=== PATIENT | female | born 1950 | race Caucasian/White ===

== ENCOUNTER 2018-09-09 22:15 | Emergency (ER) | payer OTHER, MEDICARE ==
--- OUTSIDE RECORDS SUMMARY | 2018-09-09 22:18 | XMS REPORT | Clinical Summary ---
:1950 Author Organization [facility] Address [address] [place] [address] Care Team Providers Name Role Phone Caio Menjivar MD Primary Care Provider Allergies No Known Allergies Medications Medication Sig Dispensed Refills Start End Date Status Date losartan (COZAAR) 100 MG Take 100 mg 0 Active tablet by mouth daily. aspirin (ECOTRIN) 81 MG Take 81 mg by 0 Active enteric coated tablet mouth daily. traZODone (DESYREL) 100 Take 100 mg 0 Active MG tablet by mouth nightly. HUMIRA PEN 40 mg/0.8 mL One shot every 2 weeks 0.8 mL 4 Active pen injector kit Dispense 6 prefilled pens 8 19 injection pen kit hydroCHLOROthiazide Take 12.5 mg 0 Active (HYDRODIURIL) 12.5 MG by mouth tablet daily. amLODIPine (NORVASC) 5 Take 5 mg by 0 Active mg tablet mouth daily. clopidogrel (PLAVIX) 75 Take 75 mg by 0 Active mg tablet mouth daily. atorvastatin (LIPITOR) Take 20 mg by 0 Active 20 MG tablet mouth daily. Default OP ins DULoxetine (CYMBALTA) 20 TAKE TWO (2) 6 Active MG capsule CAPSULE(S) BY 8 MOUTH ONCE A DAY. multivitamin capsule Take 1 0 Active capsule by mouth daily. pantoprazole (PROTONIX) TAKE ONE (1) 2 11/25/19 Discontinued 40 MG EC tablet TABLET(S) BY 7 18 MOUTH ONCE A DAY DIRECTED FOR 30 DAYS. TRINTELLIX 10 mg tablet TAKE ONE (1) 2 11/25/19 Discontinued TABLET(S) BY 7 18 MOUTH ONCE A DAY. adalimumab (HUMIRA PEN) One shot every 2 weeks 0.8 mL 4 Discontinued 40 mg/0.8 mL pen Dispense 6 prefilled pens 7 18 injector kit HUMIRA PEN 40 mg/0.8 mL One shot every 2 weeks 0.8 mL 4 Discontinued pen injector kit Dispense 6 prefilled pens 8 18 injection pen kit HUMIRA PEN 40 mg/0.8 mL One shot every 2 weeks 0.8 mL 4 Discontinued pen injector kit Dispense 6 prefilled pens 8 18 injection pen kit Active Problems Problem Noted Date Colon polyp Hemorrhoids GERD (gastroesophageal reflux disease) Hiatal hernia Schatzki's ring Lactose intolerance Irritable bowel syndrome Crohn's disease Encounters Date Type Specialty Care Team Description 06/23/2018 Hospital Encounter Radiology [facility] Delvalle Inflammatory arthritis MD Lisseth 06/23/2018 Hospital Encounter Radiology [facility] Pain of both hip joints MD Lisseth 06/23/2018 Hospital Encounter Radiology [facility] Del[facility] Sacroiliac joint MD Lisseth dysfunction of both sides 06/23/2018 Office Visit Rheumatology [facility] Delvalle Crohn's disease of colon without complication (Primary Dx); MD Lisseth Encounter for long-term (current) use of high-risk medication; Sacroiliac joint dysfunction of both sides; Pain of both hip joints; Dry mouth; Inflammatory arthritis; Chronic tension-type headache, not intractable; History of stroke 06/03/2018 Documentation GastroenterSharon Parikh MA 05/21/2018 Documentation GastroenterSharon Parikh MA 05/20/2018 Telephone Gastroenterology Vicky Benz RN 05/11/2018 Documentation Horacio Alejandra MD 05/07/2018 Documentation Sharon Patel MA 05/07/2018 Telephone GastroenterVicky Romero RN 05/05/2018 Documentation GastroenterHoracio Perez MD 04/23/2018 Office Visit Gastroenterology [place], Hemorrhoids, unspecified hemorrhoid type (Primary Dx); Horacio Bradley Crohn's disease of small intestine without complication; Irritable bowel syndrome with diarrhea; Gastroesophageal reflux disease, esophagitis presence not specified; Hiatal hernia; Polyp of colon, unspecified part of colon, unspecified type; Lactose intolerance; Schatzki's ring 04/20/2018 Telephone Gastroenterology Vicky Benz, VANDANA 12/16/2017 Documentation Gastroenterology Sharon Orr MA 11/25/2017 Office Visit Gastroenterology [place], Hemorrhoids, unspecified hemorrhoid type (Primary Dx); Horacio Bradley Hiatal hernia; Chronic diarrhea; Polyp of colon, unspecified part of colon, unspecified type; Crohn's disease of small intestine without complication; Irritable bowel syndrome with diarrhea; Lactose intolerance; Schatzki's ring; Duodenitis; Gastroesophageal reflux disease, esophagitis presence not specified 11/18/2017 Orders Only Gastroenterology Sharon Orr MA 11/18/2017 Orders Only Gastroenterology Horacio Grady MD 11/18/2017 Telephone Gastroenterology Dariana Covarrubias LVN 11/06/2017 Telephone Gastroenterology Vicky Benz, VANDANA after 09/08/2017 Family History Medical History Relation Name Comments Alcohol abuse Brother Hodgkin's lymphoma Brother Cirrhosis Father Coronary artery disease Father Hepatitis Father "C" after blood transfusion Coronary artery disease Mother Dementia Mother Drug abuse Sister Now clean No Known Problems Sister Relation Name Status Comments Brother Alive Brother Alive Father Mother Sister Alive Sister Alive Social History Tobacco Use Types Packs/Day Years Used Date Never Smoker Smokeless Tobacco: Never Used Alcohol Use Drinks/Week oz/Week Comments No Sex Assigned at Date Recorded Not on file Job Start Date Occupation Industry Not on file Not on file Not on file Travel History Travel Start Travel End No recent travel history available. Last Filed Vital Signs Vital Sign Reading Time Taken Blood Pressure 136/63 06/23/2018 9:58 AM CDT Pulse 61 06/23/2018 9:58 AM CDT Temperature 36.4 C (97.6 F) 06/23/2018 9:58 AM CDT Respiratory Rate 18 06/23/2018 9:58 AM CDT Oxygen Saturation 100% 06/23/2018 9:58 AM CDT Inhaled Oxygen Concentration - - Weight 50.2 kg (110 lb 11.2 oz) 06/23/2018 9:58 AM CDT Height 157 cm (5' 1.81") 06/23/2018 9:58 AM CDT Body Mass Index 20.37 06/23/2018 9:58 AM CDT Plan of Treatment Health Maintenance Due Date Last Done Comments BREAST CANCER SCREENING 1999 COLON CANCER SCREENING 1999 SHINGRIX VACCINE (1 of 2) 1999 ZOSTER VACCINE 2009 PNEUMOCOCCAL POLYSACCHARIDE VACCINE AGE 65 AND OVER 2014 PNEUMOCOCCAL-13 2014 INFLUENZA VACCINE 05/27/2018 Procedures Procedure Name Priority Date/Time Associated Diagnosis Comments XR HANDS 3 VW Routine 06/23/2018 11:25 Inflammatory Results for this BILATERAL AM CDT arthritis procedure are in the results section. XR HIPS BILATERAL AP Routine 06/23/2018 11:25 Pain of both hip Results for this LATERAL W AP PELVIS AM CDT joints procedure are in the results section. XR SACROILIAC JOINTS Routine 06/23/2018 11:24 Sacroiliac joint Results for this 3+ VW AM CDT dysfunction of both procedure are in sides the results section. URINALYSIS, AUTOMATED Routine 06/23/2018 10:06 Crohn's disease of Results for this WITH MICROSCOPY AM CDT colon without procedure are in complication the results section. SSA/SSB ANTIBODY Routine 06/23/2018 10:06 Dry mouth Results for this AM CDT procedure are in the results section. CYCLIC CITRULLINATED Routine 06/23/2018 10:06 Inflammatory Results for this PEPTIDE AB, IGG AM CDT arthritis procedure are in the results section. RHEUMATOID FACTOR Routine 06/23/2018 10:06 Inflammatory Results for this AM CDT arthritis procedure are in the results section. HLA-B27 ANTIGEN Routine 06/23/2018 10:06 Sacroiliac joint Results for this AM CDT dysfunction of both procedure are in sides the results section. C-REACTIVE PROTEIN Routine 06/23/2018 10:06 Crohn's disease of Results for this AM CDT colon without procedure are in complication the results section. BETA-2 GLYCOPROTEIN 1 Routine 06/23/2018 10:06 Crohn's disease of Results for this ANTIBODIES (IGG, IGA, AM CDT colon without procedure are in IGM) complication the results section. CARDIOLIPIN ANTIBODIES Routine 06/23/2018 10:06 Crohn's disease of Results for this AM CDT colon without procedure are in complication the results section. C4 COMPLEMENT Routine 06/23/2018 10:06 Crohn's disease of Results for this COMPONENT AM CDT colon without procedure are in complication the results section. C3 COMPLEMENT Routine 06/23/2018 10:06 Crohn's disease of Results for this COMPONENT AM CDT colon without procedure are in complication the results section. ALEX SCREEN W IFA W Routine 06/23/2018 10:06 Crohn's disease of Results for this REFLEX TO TITER AM CDT colon without procedure are in complication the results section. COPY(IES) SENT TO: Routine 04/27/2018 9:24 Results for this AM CDT procedure are in the results section. CALPROTECTIN, STOOL Routine 04/27/2018 9:24 Hemorrhoids, Results for this AM CDT unspecified procedure are in hemorrhoid type the results Crohn's disease of section. small intestine without complication Irritable bowel syndrome with diarrhea Gastroesophageal reflux disease, esophagitis presence not specified Hiatal hernia Polyp of colon, unspecified part of colon, unspecified type Lactose intolerance Schatzki's ring C-REACTIVE PROTEIN Routine 04/23/2018 2:29 Hemorrhoids, Results for this PM CDT unspecified procedure are in hemorrhoid type the results Crohn's disease of section. small intestine without complication Irritable bowel syndrome with diarrhea Gastroesophageal reflux disease, esophagitis presence not specified Hiatal hernia Polyp of colon, unspecified part of colon, unspecified type Lactose intolerance Schatzki's ring COMPREHENSIVE Routine 04/23/2018 2:29 Hemorrhoids, Results for this METABOLIC PANEL PM CDT unspecified procedure are in hemorrhoid type the results Crohn's disease of section. small intestine without complication Irritable bowel syndrome with diarrhea Gastroesophageal reflux disease, esophagitis presence not specified Hiatal hernia Polyp of colon, unspecified part of colon, unspecified type Lactose intolerance Schatzki's ring CBC HEMOGRAM Routine 04/23/2018 2:29 Hemorrhoids, Results for this PM CDT unspecified procedure are in hemorrhoid type the results Crohn's disease of section. small intestine without complication Irritable bowel syndrome with diarrhea Gastroesophageal reflux disease, esophagitis presence not specified Hiatal hernia Polyp of colon, unspecified part of colon, unspecified type Lactose intolerance Schatzki's ring CALPROTECTIN, STOOL Routine 11/28/2017 10:09 Hemorrhoids, Results for this AM [employer]IST[employer] unspecified procedure are in hemorrhoid type the results Hiatal hernia section. 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 Chronic diarrhea Polyp of colon, unspecified part of colon, unspecified type Crohn's disease of small intestine without complication Irritable bowel syndrome with diarrhea Lactose intolerance Schatzki's ring Duodenitis Gastroesophageal reflux disease, esophagitis presence not specified after 09/08/2017 Results XR Hands 3 Vw Bilateral (06/23/2018 11:25 AM CDT) Narrative Performed At EXAMINATION:XR HANDS 3 VW BILATERAL HM [facility] CLINICAL HISTORY:M19.90 Unspecified osteoarthritisunspecified site, inflammatory arthropathy COMPARISON:None. FINDINGS: There is no acute fracture or dislocation. There is healed fracture deformity and well-corticated ossific fragment involving the right ulnar styloid. There are mild degenerative changes of the basal joint of the right thumb. Bones are mildly demineralized. Joint spaces are preserved. No erosive change or periostitis noted. There are no radiographic changes of inflammatory arthropathy. IMPRESSION: No evidence of inflammatory arthropathy. [facility]-[id number] Procedure Note Hm Interface, Radiology Results [facility] - 06/23/2018 5:08 PM CDT EXAMINATION: XR HANDS 3 VW BILATERAL CLINICAL HISTORY: M19.90 Unspecified osteoarthritis unspecified site, inflammatory arthropathy COMPARISON: None. FINDINGS: There is no acute fracture or dislocation. There is healed fracture deformity and well-corticated ossific fragment involving the right ulnar styloid. There are mild degenerative changes of the basal joint of the right thumb. Bones are mildly demineralized. Joint spaces are preserved. No erosive change or periostitis noted. There are no radiographic changes of inflammatory arthropathy. IMPRESSION: No evidence of inflammatory arthropathy. [facility]-[id number] Performing Organization Address [facility] Servicescode Phone Number [facility] [address] [place] [address] XR Hips Bilateral Ap Lateral W Ap Pelvis (06/23/2018 11:25 AM CDT) Narrative Performed At Title:Left and right hips, 5 views [facility] Reason for exam:M25.551 Pain in right hip, M25.552 Pain in left hip, Right hip limitation and pain Comparison studies: None. FINDINGS: The joint distances are normal. There are no fractures and no subluxations. Sacroiliac joints are unremarkable. There are no erosions. There is soft tissue calcification and enthesiopathy in the left anterior superior iliac spine muscle insertion site. 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 [facility][id number] Procedure Note Interface, Radiology Results Incoming - 06/23/2018 6:23 PM CDT Title:Left and right hips, 5 views Reason for exam:M25.551 Pain in right hip, M25.552 Pain in left hip, Right hip limitation and pain Comparison studies: None. FINDINGS: The joint distances are normal. There are no fractures and no subluxations. Sacroiliac joints are unremarkable. There are no erosions. There is soft tissue calcification and enthesiopathy in the left anterior superior iliac spine muscle insertion site. 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 [facility][id number] Performing Organization Address [facility]/Zipcode Phone Number [facility] [address] [place] [address] XR Sacroiliac Joints 3+ Vw (06/23/2018 11:24 AM CDT) Narrative Performed At EXAMINATION: XR SACROILIAC JOINTS 3VW [facility] CLINICAL HISTORY: M53.3 Sacrococcygeal disordersnot elsewhere classified, sacroiliac dysfunciton (R L) COMPARISON:None Findings: There are mild degenerative changes in the sacroiliac joint regions. There are a few nonspecific calcifications in the pelvis. IMPRESSION: Mild degenerative changes of the sacroiliac joints which can be further evaluated with other imaging if indicated. [facility]-[id number] Procedure Note Hm Interface, Radiology Results Incoming - 06/23/2018 11:29 AM CDT EXAMINATION: XR SACROILIAC JOINTS 3 VW CLINICAL HISTORY: M53.3 Sacrococcygeal disorders not elsewhere classified, sacroiliac dysfunciton (R L) COMPARISON: None Findings: There are mild degenerative changes in the sacroiliac joint regions. There are a few nonspecific calcifications in the pelvis. IMPRESSION: Mild degenerative changes of the sacroiliac joints which can be further evaluated with other imaging if indicated. [facility]-[id number] Performing Organization Address City/State/Zipcode Phone Number CANDIS [address] [place] [address] Beta-2 glycoprotein 1 antibodies (IgG, IgA, IgM) (06/23/2018 10:06 AM CDT) Beta-2 glycoprotein 1 <9 < OR=20 [facility] antibody, IgG [facility] [facility] Beta-2 glycoprotein 1 <9 < OR=20 [facility] antibody, IgM [facility] [facility] Beta-2 glycoprotein 1 <9 < OR=20 [facility] antibody, IgA Comment: [facility]/[employer] Clinical Significance: [facility] The Antiphospholipid Antibody Syndrome (APS) is a clinical pathologic correlation that includes a clinical event (e.g. thrombosis, loss, thrombocytopenia) and persistent positive Antiphospholipid Antibodies (IgM or IgG LAURENCE >40 MPL/GPL, IgM or IgG anti-B2GP1 antibodies, or a Lupus Anticoagulant). The IgA isotype has been implicated in smaller studies, but have not yet been incorporated into the APS criteria. International consensus guidelines suggest waiting at least 12 weeks before retesting to confirm antibody persistence. Reference J Thromb Haemost 2006: 4; 295. For more information on this test, go to: http://education.[employer]/faq/QXK322 Specimen Blood Narrative Performed At FASTING:NO [facility] FASTING: NO Resulting Agency Comment Performing Organization Information: Site ID: [id number] Name: [email or web address] [facility], Address: [address] [place] [phone] Director: Shiloh Issa MD,PhD,ALEXA Performing Organization Address City/[facility]/Zipcode Phone Number QR Wild/CHANEL [address] [place] [address] [phone] [facility] ALEX SCREEN W IFA W REFLEX TO TITER (06/23/2018 10:06 AM CDT) ALEX screen NEGATIVE NEGATIVE Alo7PAUL II Comment: ALEX IFA is a first line screen for detecting the presence of up to approximately 150 autoantibodies in various autoimmune diseases. A negative ALEX IFA result suggests ALEX-associated autoimmune diseases are not present at this time. Visit Physician FAQs for interpretation of all antibodies in the [place], prevalence, and association with diseases at http://LoopFuse.Cyzone/ faq/PXP993 Specimen Blood Narrative Performed At FASTING:NO [facility] FASTING: NO Resulting Agency Comment Performing Organization Information: Site ID: [id number] Name: [facility] Address: [address] [place] [phone] Director: Dr. Dale Wood Performing Organization Address [facility] Phone Number [employer] [address] [address] SSA/SSB antibody (06/23/2018 10:06 AM CDT) Sjogren's SS-A antibody <1.0 NEG <1.0 NEG AI Alo7PAUL II Sjogren's SS-B antibody <1.0 NEG <1.0 NEG AI SarsysVING II Specimen Blood Narrative Performed At FASTING:NO [facility] FASTING: NO Resulting Agency Comment Performing Organization Information: Site ID: IG Name: [facility] Address: [address] [place] [phone] Director: Dr. Dale Wood Performing Organization Address [facility] Servicescode Phone Number [employer] [address] [address] HLA-B27 antigen (06/23/2018 10:06 AM CDT) HLA B27 NEGATIVE NEGATIVE SarsysVING II Specimen Blood Narrative Performed At FASTING:NO [facility] FASTING: NO Resulting Agency Comment Performing Organization Information: Site ID: IG Name: [facility] Address: [address] [place] [phone] Director: Dr. Dale Wood Performing Organization Address [facility] Servicescowy Phone Number BULMARO [employer]G PharmaceuticalPAUL II [address] [place] [address] Cyclic citrullinated peptide antibody, IgG (06/23/2018 10:06 AM CDT) Cyclic citrullin peptide <16 UNITS Alo7PAUL Ab Comment: II Reference Range Negative:<20 Weak Positive: 20-39 Moderate Positive: 40-59 Strong Positive: >59 Specimen Blood Narrative Performed At FASTING:NO [facility] FASTING: NO Resulting Agency Comment Performing Organization Information: Site ID: IG Name: [facility] Address: [address] [place] [phone] Director: Dr. Dale Wood Performing Organization Address [facility] Servicesc[facility]y Phone Number [email or web address] [address] [address] Cardiolipin antibodies (06/23/2018 10:06 AM CDT) Cardiolipin IgA <11 APL [facility] Comment: II Value Interpretation ----- < or=11 Negative 12 - 20 Indeterminate 21 - 80 Low to Medium Positive >80 High Positive Cardiolipin IgG <14 GPL [facility] Comment: II Value Interpretation ----- < or=14 Negative 15 - 20 Indeterminate 21 - 80 Low to Medium Positive >80 High Positive Cardiolipin IgM 38 (H) MPL [facility] Comment: II Value Interpretation ----- < or=12 Negative 13 - 20 Indeterminate 21 - 80 Low to Medium Positive >80 High Positive Comment [facility] Comment: II The antiphospholipid antibody syndrome (APS) is a clinical-pathologic correlation that includes a clinical event(e.g. thrombosis, loss, thrombocytopenia) and persistent positive antiphospholipid antibodies (IgM or IgG LAURENCE >40 MPL/GPL, IgM or IgG anti-b2GPI antibodies or a lupus anticoagulant). The IgA isotype has been implicated in smaller studies, but has not yet been incorporated into the APS criteria. International consensus guidelines suggest waiting at least 12 weeks before retesting to confirm antibody persistence. Reference J Thromb Haemost 2006: 4;295 Specimen Blood Narrative Performed At FASTING:NO [facility] FASTING: NO Resulting Agency Comment Performing Organization Information: Site ID: [id number] Name: [facility] Address: [address] [place] [phone] Director: Dr. Dale Wood Performing Organization Address City/[facility]/Zipcode Phone Number QR [employer] [address] Urinalysis, automated with microscopy (06/23/2018 10:06 AM CDT) Color, UA YELLOW YELLOW [employer] [facility] Appearance CLEAR CLEAR [facility] Specific gravity, urine 1.025 1.001 - 1.035 [facility] [place] pH, urine 7.5 5.0 - 8.0 [facility] Glucose, urine NEGATIVE NEGATIVE [facility] [place] Bilirubin, UA NEGATIVE NEGATIVE [facility] [place] Ketones, UA NEGATIVE NEGATIVE [facility] [employer] [place] Occult blood, urine NEGATIVE NEGATIVE [facility] [employer] [place] Protein, UA NEGATIVE NEGATIVE [facility] [place] Nitrite, UA NEGATIVE NEGATIVE [facility] [place] Leukocyte esterase, UA NEGATIVE NEGATIVE [facility] [place] WBC, UA 0-5 < OR=5 /HPF [facility] [place] RBC, UA 0-2 < OR=2 /HPF [facility] [place] Squamous epithelial 0-5 < OR=5 /HPF [facility] [place] cells, UA Bacteria, UA NONE SEEN NONE SEEN /HPF [facility] [place] Hyaline casts, UA NONE SEEN NONE SEEN /LPF [facility] [place] Comment FEW MUCOUS THREADS [employer] [place] Specimen Urine Narrative Performed At FASTING:NO [facility] FASTING: NO Resulting Agency Comment Performing Organization Information: Site ID: [id number] Name: [facility] Address: [address] [place] [address] Director: Coby Das Performing Organization Address [facility]/Zipcode Phone Number QR Wild [place] [phone] [place] [address] Rheumatoid factor (06/23/2018 10:06 AM CDT) Rheumatoid factor <14 <14 IU/mL [employer] [facility] Specimen Blood Narrative Performed At FASTING:NO [facility] FASTING: NO Resulting Agency Comment Performing Organization Information: Site ID: [id number] Name: [facility] Address: [address] [place] [phone] Director: Coby Das Performing Organization Address [facility] Phone Number [employer] [place] [address] [place] [address] [phone] C3 complement component (06/23/2018 10:06 AM CDT) C3 complement 115 83 - 193 mg/dL [employer] [place] Specimen Blood Narrative Performed At FASTING:NO [facility] FASTING: NO Resulting Agency Comment Performing Organization Information: Site ID: [id number] Name: [facility] Address: [address] [place] [phone] Director: Coby Das Performing Organization Address [facility] Phone Number QR Wild [address] [address] C4 complement component (06/23/2018 10:06 AM CDT) C4 complement 18 15 - 57 mg/dL [employer] [facility] [place] Specimen Blood Narrative Performed At FASTING:NO [facility] FASTING: NO Resulting Agency Comment Performing Organization Information: Site ID: [facility] Name: [facility] Address: [address] [place] [phone] Director: Coby Das Performing Organization Address [facility] Phone Number [employer]Run [facility] [address] [place] [phone] C-reactive protein (06/23/2018 10:06 AM CDT)Only the most recent of3 resultswithin the time period is included. CRP 1.5 <8.0 mg/L [employer] [place] Specimen Blood Narrative Performed At FASTING:NO [facility] FASTING: NO Resulting Agency Comment Performing Organization Information: Site ID: [id number] Name: [facility] Address: [address] [place] [id number] Director: Coby Das Performing Organization Address [facility] Phone Number QR Wild [address] [address] COPY(IES) SENT TO: (04/27/2018 9:24 AM CDT) Copies/mL [facility] Comment: KVNG MENJIVAR MD [address] [place] [address] [place] [address] Narrative Performed At [facility] 04/23/2018 FROM [id number] MyClasses Performing Organization Address City/State/[facility] Phone Number [facility] Calprotectin, stool (04/27/2018 9:24 AM CDT)Only the most recent of2 resultswithin the time period is included. Calprotectin, stool >2000.0 (H) < VD=389.9 mcg/g [employer] [facility] Specimen Stool Narrative Performed At [facility] 04/23/2018 FROM [id number] [facility] Resulting Agency Comment Performing Organization Information: Site ID: [id number] Name: [email or web address] [facility], Address: [address] [place] [phone] Director: Shiloh Issa MD,PhD,ALEXA Performing Organization Address City/[facility] Phone Number [facility] [employer] [address] [place] [phone] [facility] CBC hemogram (04/23/2018 2:29 PM CDT)Only the most recent of2 resultswithin the time period is included. WBC 12.6 (H) 3.8 - 10.8 Thousand/uL [employer] RBC 4.34 3.80 - 5.10 Million/uL [facility] [place] HGB 13.0 11.7 - 15.5 g/dL [facility] [place] HCT 38.7 35.0 - 45.0 % [facility] MCV 89.2 80.0 - 100.0 fL [facility] MCH 30.0 27.0 - 33.0 pg [facility] [place] MCHC 33.6 32.0 - 36.0 g/dL [facility] [place] RDW 12.5 11.0 - 15.0 % [facility] [place] Platelet count 355 140 - 400 Thousand/uL [facility] [place] MPV 10.7 7.5 - 12.5 fL [facility] [place] Specimen Blood Narrative Performed At FASTING:NO [facility] COLLECTION KIT GIVEN TO PATIENT. PATIENT ADVISED TO RETURN. FASTING: NO Resulting Agency Comment Performing Organization Information: Site ID: [id number] Name: [facility] Address: [address] [place] [id number] Director: Coby Das Performing Organization Address [facility] Phone Number [facility] [employer] [place] [address] [place] [phone] Comprehensive metabolic panel (04/23/2018 2:29 PM CDT)Only the most recent of2 resultswithin the time period is included. Glucose 79 65 - 139 mg/dL [employer] [employer] Comment: [place] Non-fasting reference interval BUN, whole blood 14 7 - 25 mg/dL [facility] [place] Creatinine 0.83 0.50 - 0.99 [employer] [employer] Comment: mg/dL [place] For patients >49 years of age, the reference limit for Creatinine is approximately 13% higher for people identified as -Liberian. EGFR Non-Afr. Liberian 72 > OR=60 [facility] mL/min/1.73m2 [place] EGFR 84 > OR=60 [facility] mL/min/1.73m2 [place] BUN/creatinine ratio NOT APPLICABLE 6 - 22 (calc) [facility] [place] Sodium 140 135 - 146 mmol/L [facility] [place] Potassium 4.0 3.5 - 5.3 mmol/L [facility] [place] Chloride 103 98 - 110 mmol/L [facility] [place] CO2 31 20 - 31 mmol/L [facility] [place] Calcium 9.8 8.6 - 10.4 mg/dL [facility] [place] Protein 6.4 6.1 - 8.1 g/dL [facility] [place] Albumin, S 4.0 3.6 - 5.1 g/dL [facility] [place] Globulin, total 2.4 1.9 - 3.7 g/dL [facility] (calc) [place] Albumin/globulin ratio 1.7 1.0 - 2.5 (calc) [facility] [place] Total bilirubin 0.4 0.2 - 1.2 mg/dL [facility] [place] Alkaline phosphatase 99 33 - 130 U/L [facility] [place] AST 18 10 - 35 U/L [facility] [place] ALT 13 6 - 29 U/L [facility] [place] Specimen Blood Narrative Performed At FASTING:NO [facility] COLLECTION KIT GIVEN TO PATIENT. PATIENT ADVISED TO RETURN. FASTING: NO Resulting Agency Comment Performing Organization Information: Site ID: [id number] Name: [facility] Address: [address] [place] [phone] Director: Coby Das Performing Organization Address City/State/Zipcode Phone Number [facility] [place] [address] [place] [address] after 09/08/2017 Insurance Payer Benefit Plan / Group Subscriber ID Type Phone Address MEDICARE MEDICARE PART A AND B xxxxxxxxxx Medicare [place], [place] AARP AARP SUPPLEMENT xxxxxxxxxxx Commercial ([place]) [place] [address] Advance Directives Patient has advance care planning documents on file. For more information, please contact:Baldemar Ochoa[address] [place] [address]
[2018-09-10] MEDS ORDERED: NA CHLORIDE 0.9% 1,000 ML ONE (00:26)
[2018-09-10 01:00] LABS: MCV 91.3 fL (80-100)
[2018-09-10 01:01] LABS: Protime INR 0.96
[2018-09-10 01:02] LABS: Urine Culture Reflex Order NOT NEEDED; Urine RBC <5 /HPF (NONE SEEN)
[2018-09-10 01:03] LABS: Urine Bacteria <20 /HPF (<20)
[2018-09-10 01:04] LABS: Urine Blood NEGATIVE (NEG); Urine Glucose NEGATIVE (NEG); Urine Protein NEGATIVE (NEG); Urine Specific Gravity 1.015 (1.005-1.030)
[2018-09-10 01:08] LABS: Absolute Lymphocytes (CBC) 3.1 K/uL (0.7-4.9); Absolute Neutrophil 7.4 K/uL (1.8-8.0); Basophils % 0.6 % (0-1.3); Eosinophils % 1.8 % (0-4.4); Hematocrit 38.9 % (36.0-45.0); Lymphocytes % 26.4 % (15.3-44.8); MCH 30.5 pg (27.0-35.0); MPV 9.4 fL (7.6-11.3); Monocytes % 8.4 % (3.3-12.3); RBC Red Blood Cell Count 4.26 M/uL (3.86-4.86)
[2018-09-10 01:13] LABS: ALT/SGPT 30 U/L (12-78); AST/SGOT 28 U/L (15-37); Albumin 3.8 g/dL (3.4-5.0); Alkaline Phosphatase 106 U/L (45-117); BUN Blood Urea Nitrogen 14 mg/dL (7-18); Bicarbonate 30 mmol/L (21-32); Bilirubin Direct < 0.1 mg/dL (0-0.2); Bilirubin Total 0.3 mg/dL (0.2-1.0); Glucose Level 99 mg/dL (74-106); Magnesium 2.1 mg/dL (1.8-2.4); NT PRO-BNP 20 pg/mL (<125); Potassium 3.5 mmol/L (3.5-5.1); Protein, Total 7.3 g/dL (6.4-8.2); Sodium Level 141 mmol/L (136-145); Troponin (Emerg Dept Use Only) < 0.02 ng/mL (0.0-0.045)
--- NOTE | 2018-09-10 02:01 | EDPHYS ---
Physician Documentation [facility] Name: Cristine Jarrell Age: 67 yrs Sex: Female : 1950 Arrival Date: 09/09/2018 Time: 22:16 Bed 27 Private MD: ED Physician Naeem Headley HPI: 09/10 01:58 This 67 yrs old Female presents to ER via Ambulatory with complaints of gs Dizziness, fatigue. 01:58 The patient presents with vertigo. Onset: The symptoms/episode began/occurred acutely. gs 01:58 Onset: The symptoms/episode began/occurred yesterday, at 08:00. Modifying factors: the gs symptoms are aggravated by movement of head, standing up, changing position. Associated signs and symptoms: Pertinent positives: fatigue. Severity of symptoms: At their worst the symptoms were severe in the emergency department the symptoms have resolved. The patient has experienced similar episodes in the past, a few times. The patient has not recently seen a physician. Historical: - Allergies: 09/09 22:31 No Known Allergies; ss - PMHx: 22:31 Crohn's; TIA; Hypertension; High Cholesterol; ss - Immunization history:: Adult Immunizations up to date. - Social history:: Smoking status: Patient/guardian denies using tobacco. - Ebola Screening: : Patient denies exposure to infectious person Patient denies travel to an Ebola-affected area in the 21 days before illness onset. ROS: 09/10 01:58 All other systems are negative. gs Exam: 01:58 Head/Face: Normocephalic, atraumatic. Eyes: Pupils equal round and reactive to light, gs extra-ocular motions intact. Lids and lashes normal. Conjunctiva and sclera are non-icteric and not injected. Cornea within normal limits. Periorbital areas with no swelling, redness, or edema. ENT: Nares patent. No nasal discharge, no septal abnormalities noted. Tympanic membranes are normal and external auditory canals are clear. Oropharynx with no redness, swelling, or masses, exudates, or evidence of obstruction, uvula midline. Mucous membranes moist. Neck: Trachea midline, no thyromegaly or masses palpated, and no cervical lymphadenopathy. Supple, full range of motion without nuchal rigidity, or vertebral point tenderness. No Meningismus. Chest/axilla: Normal chest wall appearance and motion. Nontender with no deformity. No lesions are appreciated. Cardiovascular: Regular rate and rhythm with a normal S1 and S2. No gallops, murmurs, or rubs. Normal PMI, no JVD. No pulse deficits. Respiratory: Lungs have equal breath sounds bilaterally, clear to auscultation and percussion. No rales, rhonchi or wheezes noted. No increased work of breathing, no retractions or nasal flaring. Abdomen/GI: Soft, non-tender, with normal bowel sounds. No distension or tympany. No guarding or rebound. No evidence of tenderness throughout. Back: No spinal tenderness. No costovertebral tenderness. Full range of motion. Skin: Warm, dry with normal turgor. Normal color with no rashes, no lesions, and no evidence of cellulitis. MS/ Extremity: Pulses equal, no cyanosis. Neurovascular intact. Full, normal range of motion. Neuro: Awake and alert, GCS 15, oriented to person, place, time, and situation. Cranial nerves II-XII grossly intact. Motor strength 5/5 in all extremities. Sensory grossly intact. Cerebellar exam normal. Normal gait. 01:58 Constitutional: The patient appears alert, awake. Vital Signs: 09/09 22:31 BP 170 / 81; Pulse 85; Resp 17; Temp 98.0(O); Pulse Ox 100% on R/A; Weight 51.71 kg; Height 5 ft. 2 in. (157.48 cm); Pain 0/10; 23:08 BP 138 / 69; Pulse 75; Resp 18; Pulse Ox 100% on R/A; Pain 0/10; mg2 09/10 01:37 BP 146 / 72; Pulse 72; Resp 18; Pulse Ox 100% on R/A; Pain 0/10; mg2 02:14 BP 135 / 78; Pulse 75; Resp 18; Pulse Ox 100% on R/A; Pain 0/10; mg2 09/09 22:31 Body Mass Index 20.85 (51.71 kg, 157.48 cm) NIH Stroke Scale Scores: 01:58 NIHSS Score: 0 gs MDM: 00:15 Patient medically screened. 01:58 Differential diagnosis: idiopathic dizziness, TIA, vertigo. Data reviewed: vital signs, nurses notes. Counseling: I had a detailed discussion with the patient and/or guardian regarding: the historical points, exam findings, and any diagnostic results supporting the discharge/admit diagnosis, the need for outpatient follow up, wants to go home. Response to treatment: the patient's symptoms have resolved after treatment. 09/10 00:15 Order name: Basic Metabolic Panel; Complete Time: 02:01 09/10 00:15 Order name: CBC with Diff; Complete Time: 02: 09/10 00:15 Order name: LFT's; Complete Time: 02: 09/10 00:15 Order name: Magnesium; Complete Time: 02: 09/10 00:15 Order name: NT PRO-BNP; Complete Time: 02: 09/10 00:15 Order name: PT-INR; Complete Time: 02: 09/10 00:15 Order name: Troponin (emerg Dept Use Only); Complete Time: 02: 09/10 00:15 Order name: XRAY Chest (1 view) 09/10 00:15 Order name: EKG; Complete Time: 00:16 09/10 00:15 Order name: Urine Microscopic Only; Complete Time: 02: 09/10 00:15 Order name: CT Head Brain wo Cont 09/10 00:35 Order name: Urine Dipstick--Ancillary (enter results) em1 09/10 00:35 Order name: Urine Dipstick-Ancillary; Complete Time: 02:01 EDRI 09/10 00:15 Order name: Cardiac monitoring; Complete Time: 00:16 09/10 00:15 Order name: EKG - Nurse/Tech; Complete Time: 00:16 09/10 00:15 Order name: IV Saline Lock; Complete Time: 00:16 09/10 00:15 Order name: Labs collected and sent; Complete Time: 00:17 09/10 00:15 Order name: O2 Per Protocol; Complete Time: 00:17 09/10 00:15 Order name: O2 Sat Monitoring; Complete Time: 00:17 09/10 00:15 Order name: Urine Dipstick-Ancillary (obtain specimen); Complete Time: 00:17 Administered Medications: 00:32 Drug: NS 0.9% 1000 ml Route: IV; Rate: 1 bolus; Site: right antecubital; mg2 02:11 Follow up: Response: No adverse reaction; IV Status: Completed infusion mg2 Disposition: 09/10/18 02:00 Discharged to Home. Impression: Benign paroxysmal vertigo. - Condition is Stable. - Discharge Instructions: Benign Positional Vertigo. - Prescriptions for Valium 5 mg Oral Tablet - take 1 tablet by ORAL route every 12 hours As needed; 20 tablet. - Medication Reconciliation Form, Thank You Letter, Antibiotic Education, Prescription Opioid Use form. - Follow up: Emergency Department; When: 1 - 2 days; Reason: Re-evaluation by your physician. NIH Stroke Scale - NIH Stroke Score Date: 09/10/2018 Time: 01:58 Total Score = 0 1a. Level of Consciousness (LOC) - 0(Alert) 1b. Level of Consciousness (LOC) (Year \T\ Age) - 0(Both) 1c. LOC Commands (Open \T\ Closes Eyes/Sheeter Helper) - 0(Both) 2. Best Gaze (Lateral Gaze Paresis) - 0(Normal) 3. Visual Field Loss - 0(No visual loss) 4. Facial Palsy - 0(Normal) 5a. Left Arm: Motor (10-second hold) - 0(No drift) 5b. Right Arm: Motor (10-second hold) - 0(No drift) 6a. Left Leg: Motor (5-second hold - always test supine) - 0(No drift) 6b. Right Leg: Motor (5-second hold - always test supine) - 0(No drift) 7. Limb Ataxia (finger/nose \T\ heel/amaral - test with eyes open) - 0(Absent) 8. Sensory Loss (pinprick arms/legs/face) - 0(Normal) 9. Best Language: Aphasia (description/naming/reading) - 0(No aphasia) 10. Dysarthria (speech clarity - read or repeat words) - 0(Normal) 11. Extinction and Inattention (visual/tactile/auditory/spatial/personal) - 0(No abnormality) Initials: Signatures: Dispatcher [employer] EDRI Ronel Ortiz RN RN Naeem Headley MD MD gs Gardose, Michele, RN RN mg2 Corrections: (The following items were deleted from the chart) 02:15 02:00 09/10/2018 02:00 Discharged to Home. Impression: Benign paroxysmal mg2 vertigo. Condition is Stable. Forms are Medication Reconciliation Form, Thank You Letter, Antibiotic Education, Prescription Opioid Use. Follow up: Emergency Department; When: 1 - 2 days; Reason: Re-evaluation by your physician. gs
--- NOTE | 2018-09-10 02:01 | ER ---
Nurse's Notes [facility] Name: Cristine Jarrell Age: 67 yrs Sex: Female : 1950 Arrival Date: 09/09/2018 Time: 22:16 Bed 27 Private MD: Diagnosis: Benign paroxysmal vertigo Presentation: 09/09 22:24 Presenting complaint: Patient states: dizziness and fatigue that began yesterday. Pt ss reports that dizziness is worse when turning head side to side, has been battling an "inner ear problem". Transition of care: patient was not received from another setting of care. No acute neurological deficit is noted. Pre-hospital glucose is not applicable to this patient. Onset of symptoms was September 08, 2018. Risk Assessment: Do you want to hurt yourself or someone else? Patient reports no desire to harm self or others. Initial Sepsis Screen: Does the patient meet any 2 criteria? No. Patient's initial sepsis screen is negative. Does the patient have a suspected source of infection? No. Patient's initial sepsis screen is negative. Care prior to arrival: None. 22:24 Method Of Arrival: Ambulatory ss 22:24 Acuity: DAKSHA 3 ss Stroke Activation: Symptom onset > 6 hours Physician: Stroke Attending; Name: ; Notified At: ; Arrived At: Physician: Chief Stroke Resident; Name: ; Notified At: ; Arrived At: Physician: Stroke Resident; Name: ; Notified At: ; Arrived At: Physician: ED Attending; Name: ; Notified At: ; Arrived At: Physician: ED Resident; Name: ; Notified At: ; Arrived At: Historical: - Allergies: 22:31 No Known Allergies; ss - PMHx: 22:31 Crohn's; TIA; Hypertension; High Cholesterol; ss - Immunization history:: Adult Immunizations up to date. - Social history:: Smoking status: Patient/guardian denies using tobacco. - Ebola Screening: : Patient denies exposure to infectious person Patient denies travel to an Ebola-affected area in the 21 days before illness onset. Screenin:34 Abuse screen: Denies threats or abuse. Denies injuries from another. Nutritional mg2 screening: No deficits noted. Tuberculosis screening: No symptoms or risk factors identified. Fall Risk IV access (20 points). Assessment: 23:08 General: Appears in no apparent distress. comfortable, Behavior is calm, cooperative. mg2 Pain: Denies pain. Neuro: Level of Consciousness is awake, alert, obeys commands, Oriented to person, place, time, situation. Cardiovascular: Capillary refill < 3 seconds Patient's skin is warm and dry. Respiratory: Airway is patent Respiratory effort is even, unlabored, Respiratory pattern is regular, symmetrical. GI: No signs and/or symptoms were reported involving the gastrointestinal system. : No signs and/or symptoms were reported regarding the genitourinary system. EENT: No signs and/or symptoms were reported regarding the EENT system. Derm: Skin is intact, is healthy with good turgor, Skin is pink, warm \\T\\ dry. normal. Musculoskeletal: No signs and/or symptoms reported regarding the musculoskeletal system. 23:09 Neuro: Reports dizziness. mg2 Vital Signs: 22:31 BP 170 / 81; Pulse 85; Resp 17; Temp 98.0(O); Pulse Ox 100% on R/A; Weight 51.71 kg; ss Height 5 ft. 2 in. (157.48 cm); Pain 0/10; 23:08 BP 138 / 69; Pulse 75; Resp 18; Pulse Ox 100% on R/A; Pain 0/10; mg2 09/10 01:37 BP 146 / 72; Pulse 72; Resp 18; Pulse Ox 100% on R/A; Pain 0/10; mg2 02:14 BP 135 / 78; Pulse 75; Resp 18; Pulse Ox 100% on R/A; Pain 0/10; mg2 09/09 22:31 Body Mass Index 20.85 (51.71 kg, 157.48 cm) NIH Stroke Scale Scores: 01:58 NIHSS Score: 0 ED Course: 09/09 22:16 Patient arrived in ED. ds1 22:24 Gonzalez Turk, VANDANA is Primary Nurse. mg2 22:29 Triage completed. ss 22:31 Arm band placed on right wrist. ss 22:34 No provider procedures requiring assistance completed. Inserted saline lock: 20 gauge mg2 in right antecubital area, using aseptic technique. Blood collected. 22:41 Naeem Headley MD is Attending Physician. gs 23:09 Patient has correct armband on for positive identification. Bed in low position. Call mg2 light in reach. casting room operator on. Pulse ox on. NIBP on. Door closed. Warm blanket given. 09/10 00:42 CT Head Brain wo Cont In Process Unspecified. EDMS 00:59 XRAY Chest (1 view) In Process Unspecified. EDMS 01:06 CT completed. Patient tolerated procedure well. Patient moved to CT via stretcher. Patient moved back from CT. 02:12 IV discontinued, intact, bleeding controlled, No redness/swelling at site. Pressure mg2 dressing applied. Administered Medications: 00:32 Drug: NS 0.9% 1000 ml Route: IV; Rate: 1 bolus; Site: right antecubital; mg2 02:11 Follow up: Response: No adverse reaction; IV Status: Completed infusion mg2 Outcome: 02:00 Discharge ordered by MD. gs 02:13 Discharged to home ambulatory, with family. mg2 02:13 Condition: stable 02:13 Discharge instructions given to patient, Instructed on discharge instructions, follow up and referral plans. medication usage, Demonstrated understanding of instructions, follow-up care, medications, Prescriptions given X 1. 02:15 Patient left the ED. mg2 NIH Stroke Scale - NIH Stroke Score Date: 09/10/2018 Time: 01:58 Total Score = 0 1a. Level of Consciousness (LOC) - 0(Alert) 1b. Level of Consciousness (LOC) (Year \\T\\ Age) - 0(Both) 1c. LOC Commands (Open \\T\\ Closes Eyes/Chief Passenger Ship Steward/Stewardess) - 0(Both) 2. Best Gaze (Lateral Gaze Paresis) - 0(Normal) 3. Visual Field Loss - 0(No visual loss) 4. Facial Palsy - 0(Normal) 5a. Left Arm: Motor (10-second hold) - 0(No drift) 5b. Right Arm: Motor (10-second hold) - 0(No drift) 6a. Left Leg: Motor (5-second hold - always test supine) - 0(No drift) 6b. Right Leg: Motor (5-second hold - always test supine) - 0(No drift) 7. Limb Ataxia (finger/nose \\T\\ heel/amaral - test with eyes open) - 0(Absent) 8. Sensory Loss (pinprick arms/legs/face) - 0(Normal) 9. Best Language: Aphasia (description/naming/reading) - 0(No aphasia) 10. Dysarthria (speech clarity - read or repeat words) - 0(Normal) 11. Extinction and Inattention (visual/tactile/auditory/spatial/personal) - 0(No abnormality) Initials: Signatures: Dispatcher [employer] Damien Humphrey Demi ds1 Ronel Ortiz RN RN ss Naeem Headley MD MD gs Gonzalez Turk RN RN mg2
--- NOTE | 2018-09-10 08:19 | RAD REPORT ---
EXAM DESCRIPTION: [facility]on Single View09/10/2018 12:58 am CLINICAL HISTORY: Hypertension COMPARISON: 2011 FINDINGS: The lungs appear clear of acute infiltrate. The heart is normal size IMPRESSION: No acute abnormalities displayed
--- NOTE | 2018-09-10 08:45 | RAD REPORT ---
EXAM DESCRIPTION: CT - Head Brain Wo Cont - 09/10/2018 2:49 am CLINICAL HISTORY: Dizziness COMPARISON: none TECHNIQUE: Computed axial tomography of the head was obtained. IV contrast was not requested.Prelimi nary report was generated by [employer] radiologic and reviewed prior to dictation All CT scans are performed using dose optimization technique as appropriate and may include automated exposure control or mA/KV adjustment according to patient size. FINDINGS: An intracranial bleed is not seen . The ventricles are normal in caliber. No extra-axial fluid collection is noted. Fluid within the sinuses/ mastoids is not seen. IMPRESSION: No acute intracranial abnormality is seen. If patient's symptoms persist MRI of the bra in would be recommended.
--- NOTE | 2018-09-10 12:34 | EKG ---
Test Date: 2018-09-10 Test Time: 00:26:16 Casing Flusher: MG MEASUREMENT RESULTS: Intervals: Rate: 67 MT: 160 QRSD: 88 QT: 414 QTc: 437 [place]: P: 75 MT: 160 QRS: 56 T: 29 INTERPRETIVE STATEMENTS: Normal sinus rhythm Normal ECG No previous ECG available for comparison Electronically Signed On 09-10-18 12:32:47 HAND RIVETER by Domingo Castaneda
== END 2018-09-10 02:15 | disposition home or self-care (01) ==
LOC: ER 22:15
DX: H81.10 Benign paroxysmal vertigo, unspecified ear (principal); I10 Essential (primary) hypertension
CPT/HCPCS: 36415; 70450; 71045; 80048; 80076; 83735; 83880; 84484; 85025; 85610; 93005; 96360; 96361; 99285; J7030; 81003; 81015

== ENCOUNTER 2020-01-14 10:55 | Day surgery (SDC) | payer OTHER, MEDICARE ==
--- NOTE | 2020-01-14 08:44 | EKG ---
Test Date: 2020-01-13 Test Time: 14:47:44 Hospice Rn: ESTEBAN MEASUREMENT RESULTS: Intervals: Rate: 67 PA: 144 QRSD: 90 QT: 386 QTc: 407 [place]: P: 77 PA: 144 QRS: 62 T: 18 INTERPRETIVE STATEMENTS: Normal sinus rhythm Normal ECG Compared to ECG 09/10/2018 00:26:16 No significant changes Electronically Signed On 01-14-20 08:43:33 CDT by Elmo Aquino
[~2020-01-14 10:55] MED LIST: Mastisol Adhesive Liq ONE
[2020-01-14] MEDS ORDERED: Ringers Lactate 1,000 ML IV ONE ×2 (11:06→14:33)
[2020-01-14] MEDS ORDERED: FENTANYL CITR 100 MCG/2 ML ONE ×2 (11:51→13:47)
[2020-01-14] MEDS ORDERED: ONDANSETRON 4 MG/2 ML VIAL ONE (11:51)
[2020-01-14] MEDS ORDERED: LIDOCAINE 2% MPF 5 ML VIAL ONE (11:51)
[2020-01-14] MEDS ORDERED: propofoL 200 MG/20 ML VIAL IV ONE (11:51)
[2020-01-14] MEDS: LIDOCAINE 1% W/EPI 1:100,000 MDV 20 ML VIAL ONE ×2 (12:03→12:14)
[2020-01-14] MEDS ORDERED: CLINDAMYCIN 900MG/D5W 900 MG/50 ML IVPB IV ONE (12:14)
[2020-01-14] MEDS ORDERED: CHLORHEXIDINE 0.12% 473ML BOT MM ONE (12:19)
[2020-01-14] MEDS ORDERED: ROCURONIUM 50 MG/5 ML VIAL IV ONE (12:23)
[2020-01-14] MEDS ORDERED: GLYCOPYRROLATE 0.2 MG/ML SYR ONE (13:39)
[2020-01-14] MEDS ORDERED: NEOSTIGMINE 1 MG/ML -5 ML ONE (13:46)
[2020-01-14] MEDS ORDERED: NS 0.9% VIAL 30 ML ONE (13:50)
[2020-01-14] MEDS ORDERED: dexAMETHasone 10 MG/ML VIAL ONE (14:10)
[2020-01-14] MEDS ORDERED: BUPIVACA 0.5%/EPI 0.0005%/PF 10 ML VIAL ONE (14:18)
--- NOTE | 2020-01-14 14:29 | P.BOP ---
Preoperative diagnosis: sialolithiasis, acute sialoadenitis, immunocompromise due to medications Postoperative diagnosis: same Primary procedure: right submandibular gland excision Protection Officer: CLEO CARRILLO Estimated blood loss: <5ml Specimen: R SGM Findings: large, approximate proximal 1 cm stone Anesthesia: General Complications: None Fluids & blood products: crystalloid 1L Transferred to: Recovery Room Condition: Good
[2020-01-14] MEDS ORDERED: KETOROLAC 30 MG/ML INJ ONE (14:41)
[2020-01-14 14:45] VITALS: O2SAT 100
[2020-01-14] MEDS ORDERED: MEPERIDINE HCL 25 MG/0.5 ML ONE (14:54)
[2020-01-14 14:55] VITALS: TEMP 97.8
[2020-01-14] MEDS ORDERED: TRAMADOL HCL 50 MG TAB ONE (15:23)
[2020-01-14 16:04] VITALS: BP 127/59
--- NOTE | 2020-01-14 17:41 | OP ---
Date of Procedure: 01/14/2020 Surgeon: Deepa Chavez MD Call Center Analyst: Raven Mcnulty. Preoperative Diagnoses: Sialolithiasis, acute sialadenitis immunocompromised due to medication. Postoperative Diagnoses: Sialolithiasis, acute sialadenitis immunocompromised due to medication.. Procedure: Right submandibular gland excision. Indication For Procedure: Cristine presented to the ENT clinic with acute pain in early December. She h as a known history of right submandibular salivary stone which was previously asymptomatic. She did not have cellulitis, but she had exquisite tenderness of the gland, both from the neck and the intrao ral aspect. She was started on oral antibiotics and monitored. Approximately, 1 week later, she continued to have severe pain and had developed exacerbation of her Crohn disease due to oral antibiotics. She is currently on immunosuppressants for her Crohn disease, putting her at increased risk for infection and complications for infection. The risks, benefits, a nd alternatives to the procedure were discussed with the patient who agreed to proceed. Description Of Procedure: The patient was brought to the operating room. She was placed under gener al anesthesia via oral endotracheal tube. An initial attempt at intraoral removal was made. The juan th prop was used and the tongue was elevated and the cheek and lip were retracted exposing the floor of mouth. The stone was palpated in the proximal portion of the submandibular duct adjacent to the g land. The opening to [place]'s duct was dilated using a lacrimal probe. Sequential dilation startin g with a size 1 up to a size 8 was made. A small incision was made from the opening of [place]'s tamika t approximately 1 cm along the length of the duct instrumentation including an alligator forceps was passed through the gland and attempts to remove the stone from this intraoral approach. This was uns uccessful and despite firm palpation, I was not able to dislodge the stone from its proximal location . A urology wire basket was passed into the submandibular duct in attempt to capture and remove the stone, but this was unsuccessful. Decision was made to proceed with open approach and removal of the gland along with the stone. The patient was repositioned with her head turned to the left for farhana r exposure of the right neck. The neck was prepped and draped in a standard fashion. A 3 cm incisio n was made 2 fingerbreadths below the inferior border of the mandible through the skin and subcutaneo us tissue and platysma muscle. The platysmal muscle flap was elevated and the marginal mandibular ne rve was identified. The fascia containing the nerve was carefully elevated off the anterior surface of the submandibular gland. The gland was noted to be inflamed with increased vascularity and friabi lity of the tissues. Careful dissection along the surface of the gland was carried out in an inferio r to superior direction. Small vascular suture as well as the facial vein were divided using the lig ature. The mylohyoid muscle was carefully elevated off the anterior aspect of the gland. The stone was palpated within the duct. The lingual nerve was carefully elevated off the duct. Once the subma ndibular duct was isolated, the duct was ligated using the LigaSure. The specimen was brought to the back table and carefully examined. The duct on the specimen was opened for examination and photodoc umentation of the specimen along with the stone was obtained. The surgical bed was thoroughly irriga amalia with sterile saline. There was no evidence of disruption of the floor of mouth and no evidence o f salivary extravasation into the surgical wound from the floor of mouth and no significant bleeding. The incision was then closed in a layered fashion using 4-0 Vicryl deep sutures, followed by 5-0 Mo nocryl subcuticular layer and the wound was finally dressed with Dermabond. After cleaning of the meredith rgical site, the area around the incision was injected with 0.5% Marcaine with epinephrine for postop erative pain control. A total of 7 mL was used. The patient was then returned to care of anesthesia for awakening and extubation in the operating room, which proceeded without difficulty. The patient was transported to the recovery room in stable condition. Disposition: The patient will be discharged home later today in the care of her family and follow up with Dr. Chavez in approximately 10 days for postoperative care. She may resume diet as tolerated and contact Dr. Chavez for any proble ms or questions. LITA/GABBY Voice ID: [id number] Report ID: [id number]
== END 2020-01-14 15:50 | disposition home or self-care (01) ==
LOC: OR 10:55
PROVIDERS: ATTEND Otolaryngology
PROC: 0CTG0ZZ Resection of Right Submaxillary Gland, Open Approach (ICD-10-PCS; principal; 2020-01-14 12:00)
DX: K11.23 Chronic sialoadenitis (principal); K11.5 Sialolithiasis; K50.90 Crohn's disease, unspecified, without complications; M06.9 Rheumatoid arthritis, unspecified; Z79.02 Long term (current) use of antithrombotics/antiplatelets; Z79.899 Other long term (current) drug therapy; Z85.828 Personal history of other malignant neoplasm of skin
CPT/HCPCS: 93005; 88307; 42440; J2704; J3010 ×2; J1100; J2175; J2710; J7120 ×2; J2405; 88304

== ENCOUNTER 2021-08-18 20:07 | Emergency (ER) | payer OTHER, MEDICARE ==
[2021-08-18 20:44] LABS: Absolute Lymphocytes (CBC) 4.1 K/uL (0.7-4.9); Basophils % 0.5 % (0-1.3); Hematocrit 39.7 % (36.0-45.0); Lymphocytes % 30.6 % (15.3-44.8); MPV 9.1 fL (7.6-11.3); RBC Red Blood Cell Count 4.53 M/uL (3.86-4.86)
[2021-08-18 20:50] LABS: Protime INR 0.91
[2021-08-18 21:07] LABS: ALT/SGPT 34 U/L (12-78); AST/SGOT 24 U/L (15-37); Albumin 4.3 g/dL (3.4-5.0); Alkaline Phosphatase 140 U/L (45-117); BUN Blood Urea Nitrogen 16 mg/dL (7-18); Bicarbonate 27 mmol/L (21-32); Bilirubin Direct 0.1 mg/dL (0-0.2); Bilirubin Total 0.3 mg/dL (0.2-1.0); Glucose Level 120 mg/dL (74-106); Magnesium 2.1 mg/dL (1.8-2.4); NT PRO-BNP 101 pg/mL (<125); Potassium 3.8 mmol/L (3.5-5.1); Protein, Total 8.5 g/dL (6.4-8.2); Sodium Level 142 mmol/L (136-145); Troponin (Emerg Dept Use Only) < 0.02 ng/mL (0.0-0.045)
--- NOTE | 2021-08-18 21:19 | RAD REPORT ---
EXAM DESCRIPTION: CT - Head Brain Wo Cont - 08/18/2021 9:01 pm CLINICAL HISTORY: DIZZINESS COMPARISON: <Comparisons> TECHNIQUE: All CT scans are performed using dose optimization technique as appropriate and may inclu de automated exposure control or mA/KV adjustment according to patient size. FINDINGS: No intracranial hemorrhage, hydrocephalus or extra-axial fluid collection.No areas of brai n edema or evidence of midline shift. Mild chronic small vessel ischemic changes . The paranasal sinuses and mastoids are clear. The calvarium is intact. IMPRESSION: No acute intracranial abnormality.
[2021-08-18 21:20] LABS: Urine Blood Negative (Negative); Urine Glucose Negative (Negative); Urine Protein Negative (Negative); Urine pH 8.5 (5.0-7.0)
--- NOTE | 2021-08-18 21:28 | RAD REPORT ---
EXAM DESCRIPTION: RAD - Chest Single View - 08/18/2021 8:53 pm CLINICAL HISTORY: CHEST PAIN COMPARISON: Chest Pa And Lat (2 Views) dated 05/22/2021; Chest Pa And Lat (2 Views) dated 03/15/2020; Chest Single View dated 09/10/2018; CHEST PA AND LAT 2 VIEW dated 12/30/2011 FINDINGS: Lines: None. Lungs: No evidence of edema or pneumonia. Pleural: No significant pleural effusions or pneumothorax. Cardiac: The heart size is within normal limits. Bones: No acute fractures. Other: IMPRESSION: No acute cardiopulmonary disease.
[2021-08-18 22:00] LABS: SARS-COV-2 RT PCR NEGATIVE (NEGATIVE)
[2021-08-18] MEDS ORDERED: NA CHLORIDE 0.9% 500 ML ONE (23:09)
[2021-08-18] MEDS ORDERED: ONDANSETRON 4 MG/2 ML VIAL ONE (23:09)
--- NOTE | 2021-08-18 23:47 | EDPHYS ---
Physician Documentation [facility] Name: Cristine Jarrell Age: 70 yrs Sex: Female : 1950 Arrival Date: 08/18/2021 Time: 20:11 Bed 25 Private MD: ED Physician Arturo Nesbitt HPI: 08/18 20:35 This 70 yrs old Female presents to ER via Wheelchair with complaints of High mh7 Blood Pressure, Shakey. 20:35 The patient presents to the emergency department with nausea, that is moderate. mh7 20:35 Onset: The symptoms/episode began/occurred today. Possible causes: unknown. The mh7 symptoms are aggravated by nothing. The symptoms are alleviated by nothing. Severity of symptoms: At their worst the symptoms were moderate today, in the emergency department the symptoms have improved markedly. 20:35 Associated signs and symptoms: Pertinent positives: nausea, [place] shaky, dizziness, mh7 Pertinent negatives: abdominal pain, anorexia, belching, constipation, diarrhea, dysuria, fever, flatulence, GI bleeding, hematuria, vaginal discharge, vomiting. Historical: - Allergies: 20:30 No Known Allergies; em - PMHx: 20:30 Crohn's; High Cholesterol; Hypertension; TIA; em - Immunization history:: Adult Immunizations not immunized. - Social history:: Smoking status: Patient denies any tobacco usage or history of. ROS: 20:35 Eyes: Negative for injury, pain, redness, and discharge, ENT: Negative for injury, mh7 pain, and discharge, Neck: Negative for injury, pain, and swelling, Respiratory: Negative for shortness of breath, cough, wheezing, and pleuritic chest pain, Back: Negative for injury and pain, : Negative for injury, bleeding, discharge, and swelling, MS/Extremity: Negative for injury and deformity, Skin: Negative for injury, rash, and discoloration, Neuro: Negative for headache, weakness, numbness, tingling, and seizure, Psych: Negative for depression, anxiety, suicide ideation, homicidal ideation, and hallucinations, Allergy/Immunology: Negative for hives, rash, and allergies, Endocrine: Negative for neck swelling, polydipsia, polyuria, polyphagia, and marked weight changes, Hematologic/Lymphatic: Negative for swollen nodes, abnormal bleeding, and unusual bruising. 20:35 Cardiovascular: Negative for chest pain, palpitations, and edema. mh7 20:35 Abdomen/GI: Negative for abdominal pain, vomiting, diarrhea, constipation, abdominal cramps, abdominal distension, anorexia, dysphagia, hematemesis, black/tarry stool, rectal pain, rectal bleeding, bowel incontinence, flatulence. Exam: 20:35 Constitutional: This is a well developed, well nourished patient who is awake, alert, mh7 and in no acute distress. Head/Face: Normocephalic, atraumatic. Eyes: Pupils equal round and reactive to light, extra-ocular motions intact. Lids and lashes normal. Conjunctiva and sclera are non-icteric and not injected. Cornea within normal limits. Periorbital areas with no swelling, redness, or edema. Neck: Trachea midline, no thyromegaly or masses palpated, and no cervical lymphadenopathy. Supple, full range of motion without nuchal rigidity, or vertebral point tenderness. No Meningismus. Chest/axilla: Normal chest wall appearance and motion. Nontender with no deformity. No lesions are appreciated. Cardiovascular: Regular rate and rhythm with a normal S1 and S2. No gallops, murmurs, or rubs. Normal PMI, no JVD. No pulse deficits. Respiratory: Lungs have equal breath sounds bilaterally, clear to auscultation and percussion. No rales, rhonchi or wheezes noted. No increased work of breathing, no retractions or nasal flaring. Abdomen/GI: Soft, non-tender, with normal bowel sounds. No distension or tympany. No guarding or rebound. No evidence of tenderness throughout. Back: No spinal tenderness. No costovertebral tenderness. Full range of motion. Skin: Warm, dry with normal turgor. Normal color with no rashes, no lesions, and no evidence of cellulitis. MS/ Extremity: Pulses equal, no cyanosis. Neurovascular intact. Full, normal range of motion. Neuro: Awake and alert, GCS 15, oriented to person, place, time, and situation. Cranial nerves II-XII grossly intact. Motor strength 5/5 in all extremities. Sensory grossly intact. Cerebellar exam normal. Normal gait. Psych: Awake, alert, with orientation to person, place and time. Behavior, mood, and affect are within normal limits. Vital Signs: 20:27 BP 200 / 82; Pulse 73; Resp 18; Temp 98.3; Pulse Ox 99% on R/A; Weight 53.07 kg; Height em 5 ft. 2 in. (157.48 cm); 21:32 BP 176 / 74 RA Sitting (auto/reg); Pulse 68; Resp 15 S; Pulse Ox 99% ; Pain 0/10; sj1 22:36 BP 176 / 79; Pulse 71; Resp 16 S; Pulse Ox 99% on R/A; Pain 0/10; sj1 23:39 BP 149 / 80; Pulse 81; Resp 16 S; Pulse Ox 100% ; Pain 0/10; sj1 20:27 Body Mass Index 21.40 (53.07 kg, 157.48 cm) em MDM: 23:43 Differential diagnosis: Nonspecific abd pain, gastritis, pancreatitis, Dizziness, mh7 hypertension, nausea. Data reviewed: vital signs, nurses notes, old medical records, lab test result(s), cardiac enzymes, CBC, electrolytes, urinalysis, EKG, radiologic studies, CT scan, plain films. Data interpreted: Pulse oximetry: on room air is 100 %. Interpretation: normal. Counseling: I had a detailed discussion with the patient and/or guardian regarding: the historical points, exam findings, and any diagnostic results supporting the discharge/admit diagnosis, the presence of at least one elevated blood pressure reading (>120/80) during this emergency department visit, lab results, radiology results, to return to the emergency department if symptoms worsen or persist or if there are any questions or concerns that arise at home. Response to treatment: the patient's symptoms have resolved after treatment, the patient's blood pressure is in an acceptable range, mental status has returned to baseline, the patient no longer shows bradycardia, the patient is not short of breath, the patient is not tachycardic, the patient's pain is gone, the patient's temperature has normalized. Refusal of service: The patient/guardian displays adequate decision making capability and despite a detailed discussion of alternatives, benefits, risks, and consequences refuses: Admission to the hospital for further work-up and treatment. ED course: Well-appearing, no acute distress, vital signs stable, no focal neurological deficits. Patient states that her symptoms have resolved. Discussed test results and findings with patient and offered admission for observation but patient declined admission or any further care or testing request to be discharged in ED at this time. She will follow up with her primary doctor but will return to ED if worsening symptoms or other urgent concerns.. 23:46 Patient medically screened. [facility] 08/18 20:27 Order name: Basic Metabolic Panel; Complete Time: 21:21 08/18 20:27 Order name: CBC with Diff; Complete Time: 21:21 08/18 20:27 Order name: LFT's; Complete Time: 21:21 08/18 20:27 Order name: Magnesium; Complete Time: 21:21 08/18 20:27 Order name: NT PRO-BNP; Complete Time: 21:21 08/18 20:27 Order name: PT-INR; Complete Time: 21:21 08/18 20:27 Order name: Troponin (emerg Dept Use Only); Complete Time: 21:21 08/18 20:27 Order name: XRAY Chest (1 view); Complete Time: 21:54 08/18 20:49 Order name: Lipase; Complete Time: 21:54 [facility] 08/18 20:52 Order name: COVID-19 (Coronavirus) Document "Date of Onset" if Symptomatic [facility] 08/18 21:20 Order name: Urine Dipstick-Ancillary; Complete Time: 21:21 [facility]AL 08/18 22:00 Order name: COVID-19/FLU A+B; Complete Time: 22:20 [facility] 08/18 20:27 Order name: EKG; Complete Time: 20:29 08/18 20:27 Order name: Cardiac monitoring; Complete Time: 20:34 08/18 20:27 Order name: EKG - Nurse/Tech; Complete Time: 20:34 08/18 20:27 Order name: IV Saline Lock; Complete Time: 20:34 08/18 20:27 Order name: Labs collected and sent; Complete Time: 20:34 08/18 20:27 Order name: O2 Per Protocol; Complete Time: 20:34 08/18 20:27 Order name: O2 Sat Monitoring; Complete Time: 20:39 08/18 20:48 Order name: Urine Dipstick-Ancillary (obtain specimen); Complete Time: 21:32 [facility] 08/18 20:49 Order name: CT Head Brain wo Cont; Complete Time: 21:21 [facility] 08/18 22:42 Order name: CT Abd/Pelvis - IV Contrast Only 7 Administered Medications: 22:48 Drug: Zofran (Ondansetron) 4 mg Route: IVP; Site: right antecubital; sj1 22:48 Drug: NS 0.9% 500 ml Route: IV; Rate: bolus; Site: right antecubital; sj1 Disposition Summary: 08/18/21 23:46 Discharge Ordered Location: Home [facility] Problem: new [facility] Symptoms: have improved [facility] Condition: Stable [facility] Diagnosis - Nausea 7 - Dizziness and giddiness [facility] Followup: [facility] - With: Private Physician - When: 1 - 2 days - Reason: Worsening of condition, Recheck today's complaints, Continuance of care, Re-evaluation by your physician Discharge Instructions: - Discharge Summary Sheet [facility] - Dizziness [facility] - Nausea, Adult [facility] Forms: - Medication Reconciliation Form [facility] - Thank You Letter [facility] - Antibiotic Education [facility] - Prescription Opioid Use [facility] Prescriptions: - ondansetron 4 mg Oral tablet,disintegrating - place 1 tablet by TRANSLINGUAL route every 8 hours As needed; 10 tablet; [facility] Refills: 0, Product Selection Permitted Signatures: Dispatcher [employer] EDMS Roberto Mcdaniel RN RN em Arturo Nesbitt MD MD 7 Bettie Mar RN RN sj1 Corrections: (The following items were deleted from the chart) 21:18 20:52 Influenza Screen (A \\T\\ B)+BA.LAB.BRZ ordered. EDMS EDMS 21:19 20:52 CORONAVIRUS ordered. EDAL EDMS 23:42 20:35 Associated signs and symptoms: Pertinent positives: nausea, Chills, dizziness, mh7 brief chest pain, Pertinent negatives: abdominal pain, anorexia, belching, constipation, diarrhea, dysuria, fever, flatulence, GI bleeding, hematuria, vaginal discharge, vomiting, mh7
--- NOTE | 2021-08-18 23:47 | ER ---
Nurse's Notes [facility] Name: Cristine Jarrell Age: 70 yrs Sex: Female : 1950 Arrival Date: 08/18/2021 Time: 20:11 Bed 25 Private MD: Diagnosis: Nausea;Dizziness and giddiness Presentation: 08/18 20:27 Chief complaint: Patient states: has not been feeling well, thinks she is having a em heart attack, denies having chest pain at this time, reports nausea. Coronavirus screen: Vaccine status: Patient reports being unvaccinated. Ebola Screen: Patient negative for fever greater than or equal to 101.5 degrees Fahrenheit, and additional compatible Ebola Virus Disease symptoms Patient denies exposure to infectious person. Patient denies travel to an Ebola-affected area in the 21 days before illness onset. No symptoms or risks identified at this time. Initial Sepsis Screen: Does the patient meet any 2 criteria? No. Patient's initial sepsis screen is negative. Does the patient have a suspected source of infection? No. Patient's initial sepsis screen is negative. Risk Assessment: Do you want to hurt yourself or someone else? Patient reports no desire to harm self or others. Onset of symptoms was August 18, 2021. 20:27 Method Of Arrival: Wheelchair em 20:27 Acuity: DAKSHA 3 em Triage Assessment: 21:33 General: Appears in no apparent distress. Behavior is calm, cooperative, appropriate sj1 for age. Pain: Denies pain. Historical: - Allergies: 20:30 No Known Allergies; em - PMHx: 20:30 Crohn's; High Cholesterol; Hypertension; TIA; em - Immunization history:: Adult Immunizations not immunized. - Social history:: Smoking status: Patient denies any tobacco usage or history of. Screenin:33 Abuse screen: Denies threats or abuse. Denies injuries from another. Nutritional sj1 screening: No deficits noted. Tuberculosis screening: No symptoms or risk factors identified. Fall Risk None identified. Assessment: 21:34 General: Appears in no apparent distress. Behavior is calm, cooperative, appropriate sj1 for age. Pain: Denies pain. Neuro: Level of Consciousness is awake, alert, obeys commands, Oriented to person, place, time, situation. Cardiovascular: Rhythm is sinus rhythm. Respiratory: No deficits noted. Airway is patent Trachea midline Respiratory effort is even, unlabored, Respiratory pattern is regular, symmetrical. GI: Reports nausea. : No signs and/or symptoms were reported regarding the genitourinary system. EENT: No signs and/or symptoms were reported regarding the EENT system. Derm: No signs and/or symptoms reported regarding the dermatologic system. Musculoskeletal: No signs and/or symptoms reported regarding the musculoskeletal system. Vital Signs: 20:27 BP 200 / 82; Pulse 73; Resp 18; Temp 98.3; Pulse Ox 99% on R/A; Weight 53.07 kg; Height em 5 ft. 2 in. (157.48 cm); 21:32 BP 176 / 74 RA Sitting (auto/reg); Pulse 68; Resp 15 S; Pulse Ox 99% ; Pain 0/10; sj1 22:36 BP 176 / 79; Pulse 71; Resp 16 S; Pulse Ox 99% on R/A; Pain 0/10; sj1 23:39 BP 149 / 80; Pulse 81; Resp 16 S; Pulse Ox 100% ; Pain 0/10; sj1 20:27 Body Mass Index 21.40 (53.07 kg, 157.48 cm) em ED Course: 20:11 Patient arrived in ED. 20:26 Arturo Nesbitt MD is Attending Physician. [facility] 20:29 Triage completed. em 20:30 Arm band placed on. em 20:34 XRAY Chest (1 view) Sent. sj1 20:34 Inserted saline lock: 18 gauge in right antecubital area, using aseptic technique. sj1 Blood collected. 20:53 XRAY Chest (1 view) In Process Unspecified. EDMS 21:00 CT Head Brain wo Cont In Process Unspecified. EDMS 21:13 COVID-19 (Coronavirus) Document "Date of Onset" if Symptomatic Sent. sj1 21:33 Patient has correct armband on for positive identification. sj1 21:33 No provider procedures requiring assistance completed. sj1 23:15 CT Abd/Pelvis - IV Contrast Only In Process Unspecified. EDMS 23:52 IV discontinued, intact, bleeding controlled, No redness/swelling at site. sj1 Administered Medications: 22:48 Drug: Zofran (Ondansetron) 4 mg Route: IVP; Site: right antecubital; sj1 22:48 Drug: NS 0.9% 500 ml Route: IV; Rate: bolus; Site: right antecubital; sj1 Outcome: 23:46 Discharge ordered by . star 23:51 Discharged to home ambulatory. sj1 23:51 Condition: stable 23:51 Discharge instructions given to patient, Instructed on discharge instructions, follow up and referral plans. medication usage, Demonstrated understanding of instructions, follow-up care, medications, Prescriptions given X 1. 23:52 Patient left the ED. sj1 Signatures: Dispatcher [employer] Roberto Reyez, RN RN Arturo Baker MD MD mh7 Marsh, Wendy wm Johnson, Sade, RN RN sj1
[2021-08-19 00:48] VITALS: TEMP 98.3
[2021-08-19 00:53] VITALS: BP 149/80; O2SAT 100
--- NOTE | 2021-08-19 15:09 | RAD REPORT ---
EXAM DESCRIPTION: CT Abdomen Pelvis W Contrast CLINICAL HISTORY: 70 years Female NAUSEA / VOMITING TECHNIQUE: Contiguous axial images obtained through the abdomen and pelvis during and after intraven ous contrast administration. Coronal and sagittal reformatted images provided. This CT exam was performed according to our departmental dose-optimization program, which includes on e or more of the following dose reduction techniques: automated exposure control, adjustment of the m A and/or kV according to patient size, and/or use of iterative reconstruction technique. COMPARISON: No prior exams provided for comparison. FINDINGS: Minimal bibasilar atelectasis. Bilateral breast implants. Small foci of low-attenuation in the anterior dome of the liver are too small to fully characterize b ut likely benign. The liver is otherwise normal. The biliary tree, gallbladder, pancreas, spleen, adrenal glands, kidneys, and urinary bladder are nor mal. Prior hysterectomy. Sigmoid diverticuli. There is no bowel inflammation, obstruction, free intraperitoneal air, or ascite s. The appendix is normal. Mild atherosclerosis without abdominal aortic aneurysm or dissection. No lymphadenopathy in the abdom en or pelvis. Small fat-containing left inguinal hernia. No acute osseous abnormality. IMPRESSION: No acute abdominal or pelvic abnormalities. Electronically signed by: Samantha Munson MD 08/18/2021 11:26 PM CDT Due to temporary technical issues with the PACS/Fluency reporting system, reports are being signed by the in house radiologists without review as a courtesy to insure prompt reporting. The interpreting radiologist is fully responsible for the content of the report.
== END 2021-08-18 23:52 | disposition home or self-care (01) ==
LOC: ER 20:07
DX: R42 Dizziness and giddiness (principal); Z20.822 Contact with and (suspected) exposure to COVID-19; I10 Essential (primary) hypertension
CPT/HCPCS: 93005; 85025; 80048; 36415; 83735; 85610; 80076; 81003; 84484; 83690; 83880; 0240U; 70450; 74177; 71045; 96374; 99284; Q9967; J7040; J2405

== ENCOUNTER → 2023-11-13 | Day surgery (SDC) | payer OTHER, MEDICARE ==
[~2023-11-13] MED LIST changes: +ACETAMINOPHEN 500 MG TAB ONE; +INFLIXIMAB IV ONE; -Mastisol Adhesive Liq ONE; +NA CHLORIDE 0.9% 250 ML ONE; +NA CHLORIDE 0.9% IV ONE
[2023-11-13 13:49] VITALS: BP 157/67; TEMP 98; O2SAT 100
== END ==
LOC: DS 08:35
PROVIDERS: ATTEND Internal Medicine Gastroenterology
DX: K50.10 Crohn's disease of large intestine without complications (principal)
CPT/HCPCS: 96365; 96366; J1745; J7050

== ENCOUNTER 2023-12-11 09:27 | Day surgery (SDC) | payer OTHER, MEDICARE ==
[2023-12-11] MEDS: NA CHLORIDE 0.9% IV ONE (10:48)
[2023-12-11] MEDS: INFLIXIMAB IV ONE (10:48)
[2023-12-11] MEDS: NA CHLORIDE 0.9% 100 ML ONE (10:48)
[2023-12-11 12:57] VITALS: O2SAT 100
[2023-12-11 13:19] VITALS: BP 159/73; TEMP 98
[2023-12-11 13:38] VITALS: BMI 19.7
== END 2023-12-11 13:12 | disposition home or self-care (01) ==
LOC: DS 09:27
PROVIDERS: ATTEND Internal Medicine Gastroenterology
DX: K50.10 Crohn's disease of large intestine without complications (principal)
CPT/HCPCS: 96365; 96366; J1745; J7050

== ENCOUNTER → 2024-02-16 | Day surgery (SDC) | payer OTHER, MEDICARE ==
[2024-02-16] MEDS: NA CHLORIDE 0.9% IV ONE (08:25)
[2024-02-16] MEDS: NA CHLORIDE 0.9% 250 ML ONE (08:25)
[2024-02-16] MEDS: INFLIXIMAB IV ONE (08:25)
[2024-02-16] MEDS: ACETAMINOPHEN 500 MG TAB ONE (08:25)
[2024-02-16 09:59] VITALS: O2SAT 100; BMI 20.2
[2024-02-16 13:56] VITALS: BP 154/78; TEMP 97.6
== END ==
LOC: DS 07:20
PROVIDERS: ATTEND Internal Medicine Gastroenterology
DX: K50.10 Crohn's disease of large intestine without complications (principal)
CPT/HCPCS: 96365; 96366; J1745; J7050 ×2

== ENCOUNTER 2024-07-04 15:11 | Emergency (ER) | payer OTHER, MEDICARE ==
[2024-07-04 16:02] LABS: Absolute Basophils 0.1 K/uL (0-0.5); Absolute Eosinophils 0.2 K/uL (0-0.5); Absolute Lymphocytes (CBC) 3.7 K/uL (0.7-4.9); Absolute Monocytes 1.1 K/uL (0.1-1.3); Absolute Neutrophil 4.9 K/uL (1.8-8.0); Basophils % 0.5 % (0-1.3); Eosinophils % 2.1 % (0-4.4); Hematocrit 37.7 % (36.0-45.0); Hemoglobin 12.8 g/dL (12.0-15.0); Lymphocytes % 37.2 % (15.3-44.8); MCHC 33.9 g/dL (32.0-36.0); MCV 88.6 fL (80-100); MPV 7.9 fL (7.6-11.3); Neutrophils % 49.2 % (41.7-73.7); Nucleated Red Blood Cells % 0.1 % (0-0); Platelets 303 thou/uL (152-406); RBC Red Blood Cell Count 4.26 M/uL (3.86-4.86); Red Cell Distribution Width 12.9 % (12.1-15.2)
--- NOTE | 2024-07-04 16:03 | RAD REPORT ---
EXAM DESCRIPTION: CT - Ct Stroke Brain Wo Cont - 07/04/2024 3:57 pm CLINICAL HISTORY: STROKE ALERT COMPARISON: Head Brain Wo Cont dated 08/18/2021; Head Brain Wo Cont dated 09/10/2018 TECHNIQUE: All CT scans are performed using dose optimization technique as appropriate and may inclu de automated exposure control or mA/KV adjustment according to patient size. FINDINGS: No intracranial hemorrhage, hydrocephalus or extra-axial fluid collection.Mild brain atrop hy.No areas of brain edema or evidence of midline shift. The paranasal sinuses and mastoids are clear. The calvarium is intact. IMPRESSION: No acute intracranial abnormality. The findings were discussed with Dr. Clemens in the ER On 07/04/2024 at 3:58 p.m. by telephone.
[2024-07-04 16:09] LABS: PT Prothrombin Time 10.7 SECONDS (9.4-12.5); PTT, Activated Partial Thromb 29.4 SECONDS (24.3-36.9); Protime INR 0.95
[2024-07-04 16:21] LABS: ALT/SGPT 34 U/L (13-56); AST/SGOT 23 U/L (15-37); Albumin 3.6 g/dL (3.4-5.0); Albumin/Globulin Ratio 0.9 (1.1-1.8); Alkaline Phosphatase 119 U/L (45-117); BUN Blood Urea Nitrogen 19 mg/dL (7-18); Bicarbonate 26 mEq/L (21-32); Bilirubin Total 0.3 mg/dL (0.2-1.0); Globulin 4.2 g/dL (2.3-3.5); Glomerular Filtration Rate 62 ml/min (=/>90); Glucose Level 95 mg/dL (74-106); Magnesium 2.1 mg/dL (1.6-2.4); Protein, Total 7.8 g/dL (6.4-8.2); Sodium Level 137 mEq/L (136-145); Troponin High Sensitivity 4.6 pg/mL (<58.9)
--- NOTE | 2024-07-04 16:31 | RAD REPORT ---
EXAM DESCRIPTION: RAD - Chest Single View - 07/04/2024 4:18 pm CLINICAL HISTORY: cva Chest pain. COMPARISON: Chest Single View dated 08/18/2021; Chest Pa And Lat (2 Views) dated 05/22/2021; Chest Pa And Lat (2 Views) dated 03/15/2020; Chest Single View dated 09/10/2018 FINDINGS: Portable technique limits examination quality. The lungs are grossly clear. The heart is normal in size. No displaced fractures.Small hiatal hernia likely present. IMPRESSION: No acute intrathoracic process suspected.
[2024-07-04 16:35] LABS: Bilirubin Direct < 0.2 mg/dL (0-0.2); Bilirubin Indirect, Calculated 0.1 mg/dL (0.2-0.8)
--- NOTE | 2024-07-04 16:38 | ER ---
Nurse's Notes [facility] Name: Cristine Jarrell Age: 73 yrs Sex: Female : 1950 Arrival Date: 07/04/2024 Time: 15:11 Bed 3 Private MD: Diagnosis: Vertigo Presentation: 07/04 15:30 Chief complaint: Patient states: about 2:30pm I started to feel dizzy. 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 I do not have any weakness or any other symptoms. Coronavirus screen: Vaccine status: Patient reports being unvaccinated. Ebola Screen: Patient negative for fever greater than or equal to 101.5 degrees Fahrenheit, and additional compatible Ebola Virus Disease symptoms Patient denies exposure to infectious person. Patient denies travel to an Ebola-affected area in the 21 days before illness onset. No symptoms or risks identified at this time. Initial Sepsis Screen: Does the patient meet any 2 criteria? No. Patient's initial sepsis screen is negative. Does the patient have a suspected source of infection? No. Patient's initial sepsis screen is negative. Risk Assessment: Do you want to hurt yourself or someone else? Patient reports no desire to harm self or others. Onset of symptoms was July 04, 2024 at 14:30. 15:30 Method Of Arrival: Ambulatory tm6 15:30 Acuity: DAKSHA 3 tm6 Triage Assessment: 15:30 General: Appears in no apparent distress. Behavior is calm, cooperative. Pain: Denies tm6 pain. EENT: No signs and/or symptoms were reported regarding the EENT system. Neuro: Level of Consciousness is awake, alert, obeys commands, Oriented to person, place, time, situation, Reports dizziness, since 1430 Denies weakness blurred vision numbness headache. Cardiovascular: Patient's skin is warm and dry. Respiratory: Airway is patent Respiratory effort is even, unlabored, Respiratory pattern is regular, symmetrical. GI: No signs and/or symptoms were reported involving the gastrointestinal system. Abdomen is flat, non-distended. : No signs and/or symptoms were reported regarding the genitourinary system. Derm: No signs and/or symptoms reported regarding the dermatologic system. Musculoskeletal: No signs and/or symptoms reported regarding the musculoskeletal system. Historical: - Allergies: 15:46 No Known Allergies; tm6 - PMHx: 15:46 Crohn's; High Cholesterol; Hypertension; TIA; tm6 - PSHx: 15:46 None; tm6 - Immunization history:: Client reports having NOT received the Covid vaccine. - Infectious Disease History:: Denies. - Social history:: Smoking status: Patient denies any tobacco usage or history of. Patient/guardian denies using alcohol. - Family history:: not pertinent. Screenin:05 [place] Swallow Protocol Exclusion Criteria: Exclusion Criteria Result: Proceed Brief ph Cognitive Screen What is your name? Normal, Where are you right now? Normal, What year is it? Normal. Oral Mechanism Examination Facial Symmetry: Normal, Motion: Normal, Lip Closure: Normal, Oral Mechanism Result: Normal. 3 oz Water Swallow Challenge: Pt able to drink all water without stopping, coughing, choking or throat clearing: Yes Result: PASS Notified: Chester Clemens MD. 16:59 [facility] ED Fall Risk Assessment (Adult) History of falling in the last 3 months, ph including since admission No falls in past 3 months (0 pts) Confusion or Disorientation No (0 pts) Intoxicated or Sedated No (0 pts) Impaired Gait No (0 pts) Mobility Assist Device Used No (0 pt) Altered Elimination No (0 pt) Score/Fall Risk Level 0 - 2 = Low Risk Oriented to surroundings, Maintained a safe environment, Hourly rounding (assess needs \\T\\ fall precautionary measures) done. Abuse screen: Denies threats or abuse. Denies injuries from another. Nutritional screening: No deficits noted. Tuberculosis screening: No symptoms or risk factors identified. Assessment: 15:38 Reassessment: Dr Clemens at bedside. ph 15:40 General: Appears in no apparent distress. comfortable, well groomed, Behavior is calm, ph cooperative, appropriate for age. Pain: Denies pain. Neuro: Level of Consciousness is awake, alert, obeys commands, Oriented to person, place, time, situation, Physicist [place] are equal bilaterally Moves all extremities. Gait is steady, Speech is normal, Facial symmetry appears normal, Pupils are PERRLA, Intact Reports dizziness. Cardiovascular: Capillary refill < 3 seconds in bilateral fingers Patient's skin is warm and dry. Respiratory: Airway Respiratory effort is Respiratory pattern is. Derm: Skin is pink, warm \\T\\ dry. 15:50 Reassessment: STROKE ALERT CALLED. db 15:53 Reassessment: Pt taken to CT by VANDANA San. ph 16:25 Reassessment: Pt ambulatory to restroom w/ steady gait, states, " My Crohn's is acting ph up.". 16:30 Reassessment: Pt requesting to be d/c home, states that she is having a Crohn's flare ph up and would be more comfortable at home, Dr Clemens at bedside to speak w/ pt, instructed to return to ED if needed. Vital Signs: 15:30 BP 117 / 105; Pulse 77; Resp 19; Temp 97.6(TE); Pulse Ox 99% on R/A; Weight 54.43 kg; tm6 Height 5 ft. 2 in. ; Pain 0/10; 17:00 BP 176 / 76; Pulse 78; Resp 18; Temp 97.9; Pulse Ox 99% on R/A; ph 15:30 Body Mass Index 21.95 (54.43 kg, 157.48 cm) tm6 15:30 Pain Scale: Adult tm6 NIH Stroke Scale Scores: 15:40 NIHSS Score: 0 ph ED Course: 15:17 Patient arrived in ED. sj2 15:17 Chester Clemens MD is Attending Physician. rt 15:30 Arm band placed on right wrist. tm6 15:41 Mena Cerna, RN is Primary Nurse. db 15:46 Triage completed. tm6 15:51 Initial lab(s) drawn, by in, sent to lab. Inserted saline lock: 20 gauge in right ph antecubital area, using aseptic technique. Blood collected. Flushed with 10 mL NS. 15:59 CT Stroke Brain w/o Contrast In Process Unspecified. EDMS 16:00 Patient has correct armband on for positive identification. Placed in gown. Bed in low ph position. Call light in reach. Side rails up X 1. Client placed on continuous cardiac and pulse oximetry monitoring. NIBP monitoring applied. farm operations technical director on. 16:19 Stroke CXR 1 View In Process Unspecified. EDMS 16:37 Goldy Baron MD is Referral Physician. rt 16:59 No provider procedures requiring assistance completed. IV discontinued, intact, ph bleeding controlled, No redness/swelling at site. Pressure dressing applied. Administered Medications: No medications were administered Medication: 16:59 VIS not applicable for this client. ph Point of Care Testing: Blood Glucose: 16:06 Blood Glucose: 75 mg/dL; ph Ranges: Outcome: 16:38 Discharge ordered by . rt 16:59 Discharged to home ambulatory, ph 16:59 Condition: good 16:59 Discharge instructions given to patient, Instructed on discharge instructions, follow up and referral plans. Demonstrated understanding of instructions, follow-up care, 17:01 Patient left the ED. ph NIH Stroke Scale - NIH Stroke Score Date: 07/04/2024 Time: 15:40 Total Score = 0 10. Dysarthria (speech clarity - read or repeat words) - 0(Normal) 11. Extinction and Inattention (visual/tactile/auditory/spatial/personal) - 0(No abnormality) 1a. Level of Consciousness (LOC) - 0(Alert) 1b. Level of Consciousness (LOC) (Month \\T\\ Age) - 0(Both) 1c. LOC Commands (Open \\T\\ Closes Eyes/Helicopter Pilot) - 0(Both) 2. Best Gaze (Lateral Gaze Paresis) - 0(Normal) 3. Visual Field Loss - 0(No visual loss) 4. Facial Palsy - 0(Normal) 5a. Left Arm: Motor (10-second hold) - 0(No drift) 5b. Right Arm: Motor (10-second hold) - 0(No drift) 6a. Left Leg: Motor (5-second hold - always test supine) - 0(No drift) 6b. Right Leg: Motor (5-second hold - always test supine) - 0(No drift) 7. Limb Ataxia (finger/nose \\T\\ heel/amaral - test with eyes open) - 0(Absent) 8. Sensory Loss (pinprick arms/legs/face) - 0(Normal) 9. Best Language: Aphasia (description/naming/reading) - 0(No aphasia) Initials: ph Signatures: Dispatcher [employer] Michelle Stewart RN RN ph Benton, Danielle, RN RN db [place]kington, Ryan, MD MD rt Yue Jalloh RN RN [email or web address] Corrections: (The following items were deleted from the chart) 15:53 15:49 Reassessment: ph
--- NOTE | 2024-07-04 16:38 | EDPHYS ---
Physician Documentation [facility] Name: Cristine Jarrell Age: 73 yrs Sex: Female : 1950 Arrival Date: 07/04/2024 Time: 15:11 Bed 3 Private MD: ED Physician Chester Clemens HPI: 07/04 17:41 This 73 yrs old Female presents to ER via Ambulatory with complaints of Dizziness. rt 17:42 Patient presents to the ED with an acute onset of dizziness starting about 1 hour prior rt to arrival. Patient was sitting down, she had acute onset of dizziness described as the room moving as well as an unsteadiness on her feet. Denies other symptoms, acute complaints, symptoms are moderate in severity, no other aggravating or elevating factors.. Historical: - Allergies: 15:46 No Known Allergies; tm6 - PMHx: 15:46 Crohn's; High Cholesterol; Hypertension; TIA; tm6 - PSHx: 15:46 None; tm6 - Immunization history:: Client reports having NOT received the Covid vaccine. - Infectious Disease History:: Denies. - Social history:: Smoking status: Patient denies any tobacco usage or history of. Patient/guardian denies using alcohol. - Family history:: not pertinent. ROS: 17:42 Constitutional: Negative for fever, chills, and weight loss, Cardiovascular: Negative rt for chest pain, palpitations, and edema, Respiratory: Negative for shortness of breath, cough, wheezing, and pleuritic chest pain, Abdomen/GI: Negative for abdominal pain, nausea, vomiting, diarrhea, and constipation, MS/Extremity: Negative for injury and deformity, Skin: Negative for injury, rash, and discoloration, 17:42 Neuro: Positive for dizziness, gait disturbance, Exam: 17:42 Constitutional: This is a well developed, well nourished patient who is awake, alert, rt and in no acute distress. Head/Face: Normocephalic, atraumatic. Chest/axilla: Normal chest wall appearance and motion. Nontender with no deformity. No lesions are appreciated. Cardiovascular: Regular rate and rhythm with a normal S1 and S2. No gallops, murmurs, or rubs. Normal PMI, no JVD. No pulse deficits. Respiratory: Lungs have equal breath sounds bilaterally, clear to auscultation and percussion. No rales, rhonchi or wheezes noted. No increased work of breathing, no retractions or nasal flaring. Abdomen/GI: Soft, non-tender, with normal bowel sounds. No distension or tympany. No guarding or rebound. No evidence of tenderness throughout. Skin: Warm, dry with normal turgor. Normal color with no rashes, no lesions, and no evidence of cellulitis. 17:42 Eyes: No nystagmus, visual hollingsworth intact, extraocular muscles are intact, head impulse and test of skew negative. 17:42 ECG was reviewed by the Attending Physician. 17:42 Neuro: Cranial nerves II through XII intact, strength and sensation intact in upper and lower extremity, Vital Signs: 15:30 BP 117 / 105; Pulse 77; Resp 19; Temp 97.6(TE); Pulse Ox 99% on R/A; Weight 54.43 kg; tm6 Height 5 ft. 2 in. ; Pain 0/10; 17:00 BP 176 / 76; Pulse 78; Resp 18; Temp 97.9; Pulse Ox 99% on R/A; ph 15:30 Body Mass Index 21.95 (54.43 kg, 157.48 cm) tm6 15:30 Pain Scale: Adult tm6 NIH Stroke Scale Scores: 15:40 NIHSS Score: 0 ph MDM: 15:31 Patient medically screened. rt 17:42 Differential diagnosis: Central vertigo, peripheral vertigo. Data reviewed: vital rt signs, nurses notes, lab test result(s), EKG, radiologic studies. Consideration of Admission/Observation Escalation of care including admission/observation considered. After noncontrasted scan of the head before CT angiograms, patient stated that she wished to go home to take her Remicade. Informed patient that stroke is not been completely ruled out. Patient did arrive within the window of getting thrombolytics, I do long discussion with the patient regarding risks and benefits to include risk of bleeding as well as the potential benefit of having improvement of symptoms should this represent a stroke. Patient elects to forego thrombolytics at this point. She has decision-making capacity and has full understanding of the consequences. Patient understands that she may return anytime if changes her mind or has worsening of her condition.. I considered the following discharge prescriptions or medication management in the emergency department Medications were administered in the Emergency Department. See MAR. Independent interpretation of the following test(s) in the Emergency Department CT Scan: My interpretation is No intracranial hemorrhage seen on interpretation of CT scan images. Care significantly affected by the following chronic conditions: Hypertension. Counseling: I had a detailed discussion with the patient and/or guardian regarding the historical points, exam findings, and any diagnostic results supporting the discharge/admit diagnosis, lab results, radiology results, the need for outpatient follow up, to return to the emergency department if symptoms worsen or persist or if there are any questions or concerns that arise at home. Response to treatment: the patient's symptoms have markedly improved after treatment. 07/04 15:51 Order name: Basic Metabolic Panel; Complete Time: 16:37 rt 07/04 15:51 Order name: CBC with Diff; Complete Time: 16:37 rt 07/04 15:51 Order name: Hepatic Function; Complete Time: 16:37 rt 07/04 15:51 Order name: High Sensitivity Troponin; Complete Time: 16:37 rt 07/04 15:51 Order name: Magnesium; Complete Time: 16:37 rt 07/04 15:51 Order name: Protime (+inr); Complete Time: 16:37 rt 07/04 15:51 Order name: Ptt, Activated; Complete Time: 16:37 rt 07/04 16:17 Order name: Glucose, Ancillary Testing; Complete Time: 16:37 EDMS 07/04 15:51 Order name: CT Stroke Brain w/o Contrast; Complete Time: 16:37 rt 07/04 15:51 Order name: Stroke CXR 1 View; Complete Time: 16:37 rt 07/04 15:51 Order name: Accucheck; Complete Time: 16:05 rt 07/04 15:51 Order name: Cardiac monitoring; Complete Time: 16:04 rt 07/04 15:51 Order name: EKG - Nurse/Tech; Complete Time: 16:04 rt 07/04 15:51 Order name: IV Saline Lock; Complete Time: 16:04 rt 07/04 15:51 Order name: Labs collected and sent; Complete Time: 16:04 rt 07/04 15:51 Order name: NPO; Complete Time: 16:04 rt 07/04 15:51 Order name: O2 Per Protocol; Complete Time: 16:04 rt 07/04 15:51 Order name: O2 Sat Monitoring; Complete Time: 16:04 rt 07/04 15:51 Order name: Stroke Swallow Screen; Complete Time: 16:04 rt EC:42 Rate is 81 beats/min. Rhythm is regular, Normal Sinus Rhythm with No ectopy. QRS [place] rt is Normal. MI interval is normal. QRS interval is normal. QT interval is normal. No ST changes noted. Administered Medications: No medications were administered Point of Care Testing: Blood Glucose: 16:06 Blood Glucose: 75 mg/dL; ph Ranges: Critical Glucose Levels:Adult <50 mg/dl or >400 mg/dl <40 mg/dl or >180 mg/dl Disposition Summary: 07/04/24 16:38 Discharge Ordered Notes: Location: Home rt Problem: new rt Symptoms: have improved rt Condition: Stable rt Diagnosis - Vertigo rt Followup: rt - With: Goldy Baron MD - When: 2 - 3 days - Reason: Discharge Instructions: - Discharge Summary Sheet rt - Vertigo rt Forms: - Medication Reconciliation Form rt - Antibiotic Education rt - Prescription Opioid Use rt - Patient Portal Instructions rt - Leadership Thank You Letter rt NIH Stroke Scale - NIH Stroke Score Date: 07/04/2024 Time: 15:40 Total Score = 0 10. Dysarthria (speech clarity - read or repeat words) - 0(Normal) 11. Extinction and Inattention (visual/tactile/auditory/spatial/personal) - 0(No abnormality) 1a. Level of Consciousness (LOC) - 0(Alert) 1b. Level of Consciousness (LOC) (Month \T\ Age) - 0(Both) 1c. LOC Commands (Open \T\ Closes Eyes/Plater Barrel) - 0(Both) 2. Best Gaze (Lateral Gaze Paresis) - 0(Normal) 3. Visual Field Loss - 0(No visual loss) 4. Facial Palsy - 0(Normal) 5a. Left Arm: Motor (10-second hold) - 0(No drift) 5b. Right Arm: Motor (10-second hold) - 0(No drift) 6a. Left Leg: Motor (5-second hold - always test supine) - 0(No drift) 6b. Right Leg: Motor (5-second hold - always test supine) - 0(No drift) 7. Limb Ataxia (finger/nose \T\ heel/amaral - test with eyes open) - 0(Absent) 8. Sensory Loss (pinprick arms/legs/face) - 0(Normal) 9. Best Language: Aphasia (description/naming/reading) - 0(No aphasia) Initials: ph Signatures: Dispatcher [employer] EDMS Chester Clemens MD MD rt Masterson, Tawney, RN RN tm6 Corrections: (The following items were deleted from the chart) 15:52 15:52 Chest Single View+RAD.RAD.BRZ ordered. EDMS EDMS 16:52 16:27 Neck Angio+CT.RAD.BRZ ordered. EDMS EDMS 16:52 16:42 Head angio ordered. EDMS EDMS
[2024-07-04 17:40] VITALS: O2SAT 99
[2024-07-04 17:41] VITALS: BP 176/76; TEMP 97.9
--- NOTE | 2024-07-06 16:58 | EKG ---
Test Date: 2024-07-04 Test Time: 16:01:57 Furniture Technician: PRIMITIVO MEASUREMENT RESULTS: Intervals: Rate: 81 IL: 148 QRSD: 108 QT: 388 QTc: 450 [place]: P: 71 IL: 148 QRS: -9 T: 66 INTERPRETIVE STATEMENTS: Normal sinus rhythm Minimal voltage criteria for LVH, may be normal variant Septal infarct, age undetermined Abnormal ECG Compared to ECG 11/19/2021 12:28:34 Left ventricular hypertrophy now present Myocardial infarct finding now present Electronically Signed On 07-06-24 16:53:43 CDT by Anatoly Mitchell
== END 2024-07-04 17:01 | disposition home or self-care (01) ==
LOC: ER 15:11
DX: R42 Dizziness and giddiness (principal); I10 Essential (primary) hypertension; E78.00 Pure hypercholesterolemia, unspecified; K50.90 Crohn's disease, unspecified, without complications; Z86.73 Personal history of transient ischemic attack (TIA), and cerebral infarction without residual deficits
CPT/HCPCS: 36415; 70450; 71045; 80048; 80076; 82947; 83735; 84484; 85025; 85610; 85730; 93005; 99285

== ENCOUNTER 2024-07-29 08:48 | Day surgery (SDC) | payer OTHER, MEDICARE ==
[2024-07-29] MEDS: INFLIXIMAB IV SCH (09:09)
[2024-07-29] MEDS: NA CHLORIDE 0.9% IV SCH (09:09)
[2024-07-29] MEDS: NA CHLORIDE 0.9% 250 ML ONE (10:25)
[2024-07-29 10:28] VITALS: BMI 21.7
[2024-07-29 10:32] VITALS: TEMP 97.4
[2024-07-29 12:05] VITALS: BP 131/58; O2SAT 99
== END 2024-07-29 11:45 | disposition home or self-care (01) ==
LOC: DS 08:48
PROVIDERS: ATTEND Internal Medicine Gastroenterology
DX: K50.00 Crohn's disease of small intestine without complications (principal)
CPT/HCPCS: 96365; 96366; J1745; J7050